=== PATIENT | male | born 1930 | race Caucasian/White ===

== ENCOUNTER 2016-10-16 16:14 | Observation (INO) ==
[2016-10-16] MEDS ORDERED: 0.9 % Sodium Chloride 1,000 ML ONE ×2 (16:44→18:55)
[2016-10-16] MEDS: 0.9 % Sodium Chloride 1,000 ML IVC ONE (16:45)
[2016-10-16 17:28] LABS: Basophils % 0.3 %; Eosinophils % 0.3 %; Hematocrit 23.2 % (37.5-50.1); Hemoglobin 7.2 g/dL (12.9-16.9); Immature Granulocytes % 0.5 % (0-4); Lymphocytes # 1.8 K/mcL (0.6-4.6); Lymphocytes % 23.4 %; Mean Corpuscular Hemoglobin 31.9 pg (28.0-33.3); Mean Corpuscular Volume 102.7 fL (83.0-100.0); Monocytes # 0.7 K/mcL (0.0-1.3); Monocytes % 8.8 %; Neutrophils # 5.2 K/mcL (1.6-8.9); Platelet Count 181 K/mcL (140-400); Red Blood Count 2.26 M/mcL (4.19-5.50); Red Cell Distribution Width 14.8 % (11.5-14.5); Segmented Neutrophils % 66.7 %
[2016-10-16] MEDS ORDERED: *HR* OxyCODONE/APAP 5/325 TABLET PO ONE (17:30)
[2016-10-16] MEDS ORDERED: 0.9 % Sodium Chloride 1,000 ML IVC ONE (17:37)
[2016-10-16 17:39] LABS: Calcium 8.4 mg/dL (8.6-10.8); Potassium 5.7 mEq/L (3.5-4.5)
[2016-10-16] MEDS ORDERED: Calcium Gluconate 1,000 MG in D5% in Water 100 ML IVPB ONE (18:14)
--- NOTE | 2016-10-16 18:51 | Emergency Department Note ---
START Narrative - START START: I examined this patient and my medical decision-making was reviewed with the PANTOGRAPHER/PA/Advanced Practice Nurse/Resident Physician. I agree with the documented findings, disposition and treatment plan as described except to the extent set forth below. 85-year-old male presents with concerns of weakness and shortness of breath with exertion. Patient has a history of metastatic cancer and has been having hematuria for the past 3 weeks. Patient reports gross hematuria over the past few days which has been worsening. Patient has felt near syncopal but has not syncopized. Since hemoglobin is significantly decreased from his previous labs. It is 7.2 but he is definitively symptomatic. She was hypotensive with a blood pressure of systolic 60s upon arrival. This improved significantly with 2 L IV fluids. Pt feels comfortable with plan for admission to the hospital. Transfusion order placed and patient will be admitted.
--- NOTE | 2016-10-16 20:11 | Emergency Department Note ---
Disposition Clinical Impression: ARIN (acute kidney injury) Anemia Qualifiers: Anemia type: unspecified type Qualified Code(s): D64.9 - Anemia, unspecified Bladder cancer Qualifiers: Bladder location: unspecified site Qualified Code(s): C67.9 - Malignant neoplasm of bladder, unspecified Disposition: Admitted As Inpatient Condition: Fair Time of Disposition: 19:00 General Adult HPI - General Chief complaint: ED Urogenital-Male Stated complaint: Urinating blood Time Seen by Provider: 10/16/16 16:40 Source: patient Limitations: no limitations Nursing Notes Reviewed: Yes Vital Signs Reviewed: Yes - History of Present Illness HPI Narrative: Patient is an 85 -year-old male who presents to [facility] ED with a chief complaint of worsening weakness over the last 3 days. Past medical history significant for stage IV bladder cancer. Patient has hematuria which is normal for him. States he knows this is a terminal diagnosis and had only expected to live to July. States his has been taking care of him at home but now he is getting too weak to where he cannot stay at home. Patient is extremely pale appearing. Denies any nausea, vomiting, fever or chills. No chest pain or shortness of breath. No abdominal pain. Patient is complaining of pain in his sacral region but he has mainly just been laying down or sitting. Onset (ago): day(s) Pain Scale: 2 Quality: aching Consistency: constant Improves with: nothing Worsens with: nothing Associated symptoms: Reports: weakness. Denies: chest pain, cough, fever/chills , nausea/vomiting, shortness of breath Treatments Prior to Arrival: none - Related Data Allergies Allergy/AdvReac Type Severity Reaction Status Date / Time shellfish derived Allergy Hives Verified 05/17/15 20:21 All systems ED: reviewed and negative except as stated. Past Medical History - Past Medical History Attestation: Yes The following information was validated with the patient. Source: patient Medical history: Reports: cancer, myocardial infarction Surgical history: Reports: coronary bypass (CABG), pacemaker/AICD Psychiatric history: Reports: no psych history - Social History Smoking Status: Never smoker Smokeless Tobacco Status: No Alcohol use: Reports: occasionally Drug use: Reports: none Physical Exam - General Limitations: no limitations General appearance: alert, in no apparent distress - Head Head exam: atraumatic, normocephalic, normal inspection - Eye Eye exam: Present: normal appearance, PERRL, EOMI - ENT ENT exam: normal exam, normal oropharynx, mucous membranes moist - Neck Neck exam: Present: normal inspection, full ROM, trachea midline - Chest Chest inspection: Present: normal inspection, symmetric chest wall rise - Respiratory Respiratory exam: Present: normal lung sounds bilaterally - Cardiovascular Cardiovascular exam: Present: regular rate, normal rhythm, normal heart sounds - Abdominal Exam Abdominal exam: Present: soft, Non-Tender. Absent: tenderness, distention, guarding, rebound, rigidity - Extremities Exam Extremities exam: Present: normal inspection, full ROM. Absent: tenderness, pedal edema - Back Exam Back exam: Present: normal inspection, full ROM. Absent: tenderness - Neurological Exam Neurological exam: Present: alert, oriented X3 - Psychiatric Psychiatric exam: Present: normal affect, normal mood - Skin Skin exam: Present: warm, dry, intact, pallor Course Course Narrative: Patient seen and examined. Weakness worsening over the last 3 days. Extreme pallor of his skin and conjunctiva. Suspect anemia. Basic lab work ordered. Patient does have signs of beginnings of a stage I sacral ulcer. Percocet ordered for pain. He is hypotensive with blood pressure 60s over 40s upon arrival. 1 L of fluids ordered. - Reevaluation(s) Reevaluation #1: Patient's blood pressure steadily improving. Second liter of fluids ordered. Hemoglobin shows 7.1. One unit of packed RBCs ordered. Also shows acute on chronic kidney disease. We will admit for symptomatic anemia. I spoke with hospitalist Dr. Polanco was accepted patient for admission. Time: 19:00 Vital Signs Temperature 0 F L 10/16/16 16:16 Pulse Rate 90 10/16/16 16:16 Respiratory Rate 18 10/16/16 16:16 Blood Pressure 66/43 10/16/16 16:16 O2 Sat by Pulse Oximetry 100 10/16/16 16:16 Temperature 98.2 F 10/16/16 19:24 Pulse Rate 88 10/16/16 19:24 Respiratory Rate 18 10/16/16 19:34 Blood Pressure 110/49 10/16/16 19:34 O2 Sat by Pulse Oximetry 98 10/16/16 19:24 Oxygen Delivery Oxygen Delivery Room Air Medical Decision Making - Medical Records Medical records reviewed: Yes I reviewed the patient's medical records. - Lab Data Lab results reviewed: Yes I reviewed the patient's lab results. Result diagrams: 10/16/16 17:21 10/16/16 17:21 Lab Results 10/16/16 10/16/16 10/16/16 Range/Units 17:21 17:21 17:27 WBC 7.8 (4.3-11.1) K/mcL RBC 2.26 L (4.19-5.50) M/mcL Hgb 7.2 L (12.9-16.9) g/dL Hct 23.2 L (37.5-50.1) % MCV 102.7 H (83.0-100.0) fL MCH 31.9 (28.0-33.3) pg MCHC 31.0 L (31.6-35.5) g/dL RDW 14.8 H (11.5-14.5) % Plt Count 181 (140-400) K/mcL MPV 8.0 L (9.4-12.4) fL Immature Gran % 0.5 (0-4) % Seg Neutrophils % 66.7 % Lymphocytes % 23.4 % Monocytes % 8.8 % Eosinophils % 0.3 % Basophils % 0.3 % Neutrophils # 5.2 (1.6-8.9) K/mcL Lymphocytes # 1.8 (0.6-4.6) K/mcL Monocytes # 0.7 (0.0-1.3) K/mcL Eosinophils # 0.0 (0.0-0.6) K/mcL Basophils # 0.0 (0.0-0.2) K/mcL Sodium 136 (136-145) mEq/L Potassium 5.7 H (3.5-4.5) mEq/L Chloride 113 H (98-109) mEq/L Carbon Dioxide 13 L (19-29) mEq/L BUN 49 H (8-26) mg/dL Creatinine 2.31 H (0.72-1.25) mg/dL Est GFR ( Amer) 33 L (> 60) Est GFR (Non-Af Amer) 27 L (> 60) BUN/Creatinine Ratio 21 (6-26) Glucose 109 H (70-99) mg/dL Calculated Osmolality 296 (280-300) Calcium 8.4 L (8.6-10.8) mg/dL Blood Type B POSITIVE Antibody Screen NEGATIVE Crossmatch See Detail - EKG Data EKG #1 EKG attestation: Yes I reviewed and interpreted this EKG. EKG results narrative: EKG done at 1820 shows electronic ventricular paced rhythm with a rate of [address] elevation or depression. This is changed from prior EKG done 11/28/2006 in which that was not a paced rhythm at the time.
[2016-10-16] MEDS ORDERED: Ondansetron 4 MG/2 ML VIAL IVP PRN (20:43)
[2016-10-16] MEDS ORDERED: Acetaminophen 325 MG TABLET PO PRN (20:43)
[2016-10-16] MEDS ORDERED: Naloxone 0.4 MG/ML INJ IVP PRN (20:43)
[2016-10-16] MEDS ORDERED: *HR* HYDROmorphone (PF) 1 MG/ML SYRINGE IVP PRN (20:43)
[2016-10-16] MEDS ORDERED: *HR* OxyCODONE Immed Rel 5 MG TABLET PO PRN (20:43)
[2016-10-16] MEDS ORDERED: Benzonatate 100 MG CAPSULE PO PRN (20:43)
[2016-10-16] MEDS ORDERED: Ipratropium/Albuterol Neb 3 ML IH PRN (20:43)
[2016-10-16] MEDS ORDERED: Lactulose Oral Soln 20 GM/30 ML UDC PO STA (20:43)
--- NOTE | 2016-10-16 21:00 | Internal Med History&Physical ---
Date of Encounter: 10/16/16 Time of Encounter: 20:00 Assessment and Plan (1) Gross hematuria Current visit: Yes Status: Acute . (2) Iron deficiency anemia due to chronic blood loss Current visit: Yes Status: Chronic . (3) Acute blood loss anemia Current visit: Yes Status: Acute . (4) Acute kidney injury superimposed on chronic kidney disease Current visit: Yes Status: Acute . (5) Bladder cancer Current visit: Yes Status: Chronic . Qualifiers: Bladder location: unspecified site Qualified Code(s): C67.9 - Malignant neoplasm of bladder, unspecified (6) Cancer associated pain Current visit: Yes Status: Chronic . Internal Medicine - H&P: HPI Chief complaint: "Peeing blood" Admitted From: Emergency Dept Plans for Post Hospital Care: Home History of present illness: Mr. Gibson is a 85 year old male acknowledged history of advanced stage IV bladder carcinoma unspecified,CAD/CABGx5/AMIs, ischCMP/?LVEF<30%AICDpacemaker, retention, dyslipidemia, ?PAF s/p ablation (?not on chr A/C due to bleeding risk ), nonsmoker. Patient is a very poor, rambling and circumstantial historian of circumstances and events and presents with no meaningful medical records to validate his concerns or health history. However, he presents with concerns of progressive weakness and dyspnea with increased work of breathing with any activity and episodes of presyncope over the last's of 3-5 days.. Patient presents with gross hematuria that has been evident for the last 3-4 weeks. He acknowledges episodes of intermittent hematuria for years but the current presentation is more significant. He also acknowledges pain in his groin and sacral region probably add a 2-5/10 severity. Pain is rated as a constant aching. Nothing seems to improve or acutely worsen that when it is present. He reports that he was first diagnosed with his bladder and prostate malignancy 5 years prior and had undergone radiation therapy and chemotherapy and limited surgical interventions which he cannot specify. However he reports that his collective experience has been without resolution of his cancer. At this point he and his have decided to focus mostly on comfort and palliation and not to pursue any aggressive interventions or interventions without hope of clinical improvement. His appetite is been good until the last month or so. Weight also has been stable. Energy level has been acceptable until current events brought him to the emergency room for assessment. Allergies episodes of postural dizziness and near-syncope. Denies chest pain loss of consciousness. No weakness loss of vision slurring of speech nausea vomiting fever chills abdominal pain. Findings in ED note: Vital signs temperature 98.2 pulse 90 respirations 18 and BP 66-110/43-49 O2 saturation 100% room air. WBC 7.8 hemoglobin 7.2 hematocrit 23.2 MCV 102.7 and MCH 31.9 MCHC 31.0. RDW 14.8 platelets 181,000. MPV 8. Differential normal. (Following transfusion 1 unit packed red blood cells , WBC 6.9 hemoglobin 8.4 hematocrit 26.6 RDW 16.4. MPV 8.4. Platelets 192,000. White blood cell differential normal. ) Trending of hemoglobin finds sudden drop occurring from baseline of 12.4 ( December 2015) to 7.2 at presentation to the ER. PT 12.1 INR 1.2 APTT 24.8 d-dimer 1576. Venous blood gas pH 7.38 PCO2 26 PO2 123 bicarbonate 15.4. Comprehensive metabolic panel notes potassium 5.4 chloride 114. Carbon dioxide 15. BUN 47 creatinine 2.31. GFR 27. Glucose 108. Osmolality 295. Hepatic function normal. Trending creatinine finds baseline of 1.10 March 2015. Gradual decline in creatinine 1.38 to 1.51 by February 2016. Declined an estimated GFR from 57 in December 2014 to current 27. Urinalysis signs: Red cloudy consistency. Specific gravity 1.016. Large protein. Trace ketones. Large blood. Positive nitrite. Small leukocyte esterase. EKG demonstrated electronic ventricular paced rhythm 81 bpm no acute ischemic changes present. CT of the abdomen and pelvis without contrast bilateral moderate hydronephrosis and hydroureter. Likely obstruction by heterogeneous soft tissue attenuation within the dependent urinary bladder lumen. Density in the urinary bladder lumen is suggestive of a mass with hemorrhagic products. He will and bilateral iliac chain adenopathy concerning for metastases. Incidental cholelithiasis. Mildly increased attenuation of central mesentery associated lymph nodes. Possibly idiopathic. Infectious inflammatory or neoplastic. CT of chest without contrast demonstrates several bilateral pulmonary nodules. 2 calcified. Largest noncalcified nodules right upper lobe. One is likely inflammatory. Assessment recommended. These were predominant interstitial fibrosis noted. Preliminary presentation suggests treatment refractory, stage IV metastatic bladder carcinoma presenting with gross hematuria and symptomatic acute on chronic blood loss anemia. Modest metabolic derangements are present including metabolic acidosis in the setting of stage IV acute On chronic renal failure. Urine sediment is suggestive of infection. Cultures are pending. Patient presents that increased acute clinical decline in mobility given his presenting clinical findings, advanced age and comorbidities. Workup and treatment will proceed comprehensively.The patient was visited and interviewed and examined. Cumulative laboratory and radiographic data base will be considered and discussed. Pertinent ancillary medical records including ECW and PCI documentation when available was reviewed and considered. Given the patient's presenting concerns, past medical history, clinical findings and symptoms, he is admitted at this time will undergo further evaluation and disposition. Orders were written as per Computerized physician back order clerk system.......................................................................... .................... Consultative opinion will be sought as clinical circumstances justify. Palliative care consultation has been requested. Pain management needs will be addressed. Laboratory /radiographic data base will be updated as appropriate. Studies include: Cultures blood and urine, pt/inr, aptt, LDH, cpk, cardiac injury panel , BNP, UA, metabolic and hematologic panel, magnesium, phosphorus, ionized calcium, thyroid panel ,lipid profile, A1c, C-peptide, CRP, sedimentation rate, blood gas, lactic acid, type/screen, serologies, etc. Precautions: Aspiration, fall, delirium protocol/surveillance initiated. Transfusion: 2 units packed red blood cells when available. Goal hemoglobin greater than 8.5. Orthostatic vital signs. Bladder scan/postvoid residual measurement. Strict input and output and daily weight measurements. Telemetry with continuous hemodynamic monitoring and pulse oximetry initiated. Empiric antibiotic coverage: Intravenous Rocephin pending culture data. Special studies: CT chest/abd/pelvis, chest x-ray, telemetry, EKG, 2d echo. Pulmonary toilet: Incentive spirometry, aerosol bronchodilator, mucolytic, antitussive, supplemental oxygen. Corticosteroid therapy. CPAP/BiPAP supplemental oxygen delivery. Aerosol Mucomyst therapy. Fluid and electrolyte repletion efforts will proceed. Careful attention to fluid balance and renal recovery will be emphasized. Avoidance of nephrotoxic exposure and adverse drug drug interaction in the setting of impaired renal function will be monitored closely. Acute coronary syndrome protocol/surveillance initiated. DVT and PUD prophylaxis initiated: PPI therapy, intermittent pneumatic cuffs. Subcutaneous heparin/Lovenox was held due to GROSS hematuria. Early ambulation will be encouraged. Immunization updates recommended. Influenza and pneumococcal vaccinations as part of ongoing preventative healthcare recommendations strongly recommended. Smoking cessation counseling briefly addressed. Patient is a nonsmoker. Advanced care directive discussion addressed. Patient does declare healthcare restrictions at this time. Cardiovascular risk appraisal and cardiovascular risk reduction efforts will be emphasized. Physical /occupational therapy consulted to evaluate patient's functional capacity and progressive mobility as his circumstances permit. Nutrition/dietary education-counseling and supplemental dietary options/ stimulants to be considered as circumstances justify. Outpatient medication schedules will be reviewed, confirmed and facilitated as appropriate. Reconciliation of home treatments including adjustments, substitutions and reintroduction into the treatment regimen will address necessary maintenance therapies for chronic pre-existing medical conditions. Plan of care has been reviewed and discussed in detail with the patient. Questions addressed. Hospital course dictated by clinical findings, treatment response and potential consultative interventions. Patient is a risk for further acute clinical decline due to age, findings, chief complaints and comorbid conditions. Condition is serious. Prognosis is guarded. CODE STATUS is DNR comfort care arrest. Past Med Surg Social Fam HX - Past Medical History Source: patient, old records reviewed Medical history: arthritis, cancer, cardiomyopathy, coronary artery disease, hyperlipidemia, hypertension, malignancy, myocardial infarction, renal disease, other Psychiatric history: no psych history, other - Past Surgical History Surgical History: cancer surgery, coronary bypass (CABG), pacemaker/AICD, other , AICD, pacemaker - Social History Smoking Status: Never smoker Smokeless Tobacco Status: No Alcohol use: occasionally Drug use: none Occupational status: retired Current living situation: Home, With Family Activity Level: Independent ambulation, Mostly sedentary Recent Out of Country Travel Within the Last 8 Weeks: No Exposure or Possible Exposure to Illness During Travel: No Internal Medicine - H&P: Meds Aspirin [Lo-Dose Aspirin EC] 81 mg PO DAILY 10/17/16 [History] Atorvastatin [Lipitor] 40 mg PO HS 10/17/16 [History] Diltiazem HCl [Diltiazem 24Hr Cd] 120 mg PO DAILY 10/17/16 [History] Enalapril Maleate [Vasotec] 20 mg PO BID 10/17/16 [History] Metoprolol Succinate 50 mg PO DAILY 10/17/16 [History] Multivits,Ca,Min/Iron/FA/Lycop [Centrum Men's Tablet] 1 each PO DAILY 10/17/16 [ History] Allergies shellfish derived Allergy (Verified 05/17/15 20:21) Hives All Systems PM: A 10-system review of systems was performed and is negative for pertinent findings except as documented above in the HPI. Allergies Allergy/AdvReac Type Severity Reaction Status Date / Time shellfish derived Allergy Hives Verified 05/17/15 20:21 Patient Problems (Last Updated 10/16/16 @ 21:02 by Obey Hennessy MD) Anemia (Acute Medical) D64.9 ARIN (acute kidney injury) (Acute Medical) N17.9 Bladder cancer (Chronic Medical) C67.9 Acute blood loss anemia (Acute Medical) D62 Acute kidney injury superimposed on chronic kidney disease (Acute Medical) N17.9 , N18.9 Gross hematuria (Acute Medical) R31.0 Iron deficiency anemia due to chronic blood loss (Chronic Medical) D50.0 Acute retention of urine (Inactive Medical) - Constitutional Constitutional: as per HPI, fatigue, malaise, other, no chills, no fever(s), no night sweats - EENT Eyes: as per HPI, no change in vision, no discharge, no pain, no photophobia Ears: as per HPI, no ear discharge, no ear pain, no tinnitus Nose, mouth and throat: as per HPI, no dysphagia, no nasal discharge, no neck pain, no sore throat - Cardiovascular Cardiovascular ROS IM: as per HPI, no chest pain, no diaphoresis, no dyspnea, no lightheadedness, no palpitations, no syncope - Respiratory Respiratory: as per HPI, no cough, no dyspnea, no wheezing, no excessive phlegm production - Gastrointestinal Gastrointestinal: as per HPI, no abdominal pain, no diarrhea, no hematemesis, no hematochezia, no melena, no nausea, no vomiting - Genitourinary Genitourinary ROS male: as per HPI, difficulty urinating, flank pain, genital pain, hematuria, urinary urgency, other - Musculoskeletal Musculoskeletal ROS IM: as per HPI, no numbness, no tingling - Integumentary Integumentary IM: as per HPI, no rash, no unusual bruising - Neurological Neurological ROS: as per HPI, no confusion, no convulsions, no focal weakness, no numbness, no tingling, no tremor(s) - Psychiatric Psychiatric: as per HPI - Endocrine Endocrine IM: as per HPI - Hematologic/Lymphatic Hematologic/Lymphatic: as per HPI, easy bleeding, other, no easy bruising - Allergic/Immunologic Allergic/Immunologic: as per HPI - Constitutional Vitals: Temp Pulse Resp BP Pulse Ox 98.2 F 89 18 118/66 99 10/16/16 19:24 10/16/16 20:00 10/16/16 20:00 10/16/16 20:00 10/16/16 20:00 Vital Signs Temp Pulse Resp BP Pulse Ox 10/16/16 20:00 89 18 118/66 99 10/16/16 19:34 18 110/49 10/16/16 19:30 88 18 110/49 98 10/16/16 19:24 98.2 F 88 18 118/54 98 10/16/16 19:09 97.9 F 86 18 99/45 97 10/16/16 17:45 87 18 100/63 99 10/16/16 17:15 88 18 88/49 99 10/16/16 16:53 97.7 F 88 18 89/53 99 10/16/16 16:16 0 F L 90 18 66/43 100 Intake and Output 10/16/16 10/16/16 10/16/16 07:59 15:59 23:59 Intake Total 2109 Balance 2109 Intake: IV Fluids 2109 0.9 % Sodium Chloride 1, 2000 / 2000 000 ML @ 3750 mls/hr IVC .Q16M ONE Rx#:[id number] Calcium Gluconate 1,000 110 / 110 MG In Dextrose 5% 100 ML @ 220 mls/hr IVPB ONCE ONE Rx#:[id number] Blood Product 0 / 0 Rbcs Leuko Poor As-3 0 / 0 Unit [id number] Other: Weight 68.039 kg Patient Weight 10/16/16 23:59 Weight 68.039 kg General appearance: Present: mild distress, A&O X 3, answers questions appropriately. Absent: cachectic - Head Head exam: Present: atraumatic, normal inspection, normocephalic - Eye Eye exam: Present: EOMI, PERRL, conjuntiva pink, sclera anicteric Pupils: Present: normal accommodation, PERRL - ENT ENT exam: Present: mucous membranes moist, normal oropharynx - Neck Neck exam general surgery: Present: supple, trachea midline. Absent: lymphadenopathy - Respiratory Respiratory exam: Present: decreased breath sounds, CTAB. Absent: accessory muscle use, rales, rhonchi, wheezes - Cardiovascular Cardiovascular exam: Present: distant heart sounds, RRR, +S1, +S2. Absent: diastolic murmur, gallop, rubs, systolic murmur - GI/Abdominal GI/Abdominal exam: Present: normal bowel sounds, soft, no peritoneal signs. Absent: distended, tenderness - Extremities Exam Extremities exam: Present: warm, radial pulses palpable and symetrical. Absent : calf tenderness, cyanotic, pedal edema - Neurological Exam Neurological exam: Present: alert, CN II-XII intact, oriented X3, no focal deficits. Absent: pronater drift, facial droop, speech deficit - Psychiatric Psychiatric exam: Present: normal affect, normal mood - Skin Skin exam: Present: dry, intact Internal Med - H&P Results - Labs CBC & Chem 7: 10/16/16 23:15 10/16/16 23:15 Labs: Vital Signs Temp Pulse Resp BP Pulse Ox 10/16/16 20:00 89 18 118/66 99 10/16/16 19:34 18 110/49 10/16/16 19:30 88 18 110/49 98 10/16/16 19:24 98.2 F 88 18 118/54 98 10/16/16 19:09 97.9 F 86 18 99/45 97 10/16/16 17:45 87 18 100/63 99 10/16/16 17:15 88 18 88/49 99 10/16/16 16:53 97.7 F 88 18 89/53 99 10/16/16 16:16 0 F L 90 18 66/43 100 Intake and Output 10/16/16 10/16/16 10/16/16 07:59 15:59 23:59 Intake Total 2109 Balance 2109 Intake: IV Fluids 2109 0.9 % Sodium Chloride 1, 2000 / 2000 000 ML @ 3750 mls/hr IVC .Q16M ONE Rx#:[id number] Calcium Gluconate 1,000 110 / 110 MG In Dextrose 5% 100 ML @ 220 mls/hr IVPB ONCE ONE Rx#:[id number] Blood Product 0 / 0 Rbcs Leuko Poor As-3 0 / 0 Unit [id number] Other: Weight 68.039 kg Patient Weight 10/16/16 23:59 Weight 68.039 kg Short CBC 10/16/16 Range/Units 17:21 WBC 7.8 (4.3-11.1) K/mcL Hgb 7.2 L (12.9-16.9) g/dL Hct 23.2 L (37.5-50.1) % Plt Count 181 (140-400) K/mcL Neutrophils # 5.2 (1.6-8.9) K/mcL BMP 10/16/16 Range/Units 17:21 Sodium 136 (136-145) mEq/L Potassium 5.7 H (3.5-4.5) mEq/L Chloride 113 H (98-109) mEq/L Carbon Dioxide 13 L (19-29) mEq/L BUN 49 H (8-26) mg/dL Creatinine 2.31 H (0.72-1.25) mg/dL Glucose 109 H (70-99) mg/dL Calcium 8.4 L (8.6-10.8) mg/dL Abnormal lab results RBC 2.26 M/mcL (4.19-5.50) L 10/16/16 17:21 Hgb 7.2 g/dL (12.9-16.9) L 10/16/16 17:21 Hct 23.2 % (37.5-50.1) L 10/16/16 17:21 MCV 102.7 fL (83.0-100.0) H 10/16/16 17:21 MCHC 31.0 g/dL (31.6-35.5) L 10/16/16 17:21 RDW 14.8 % (11.5-14.5) H 10/16/16 17:21 MPV 8.0 fL (9.4-12.4) L 10/16/16 17:21 Potassium 5.7 mEq/L (3.5-4.5) H 10/16/16 17:21 Chloride 113 mEq/L (98-109) H 10/16/16 17:21 Carbon Dioxide 13 mEq/L (19-29) L 10/16/16 17:21 BUN 49 mg/dL (8-26) H 10/16/16 17:21 Creatinine 2.31 mg/dL (0.72-1.25) H 10/16/16 17:21 Est GFR ( Amer) 33 (> 60) L 10/16/16 17:21 Est GFR (Non-Af Amer) 27 (> 60) L 10/16/16 17:21 Glucose 109 mg/dL (70-99) H 10/16/16 17:21 Calcium 8.4 mg/dL (8.6-10.8) L 10/16/16 17:21 - Impressions Laboratory Results WBC 7.8 K/mcL (4.3-11.1) 10/16/16 17:21 RBC 2.26 M/mcL (4.19-5.50) L 10/16/16 17:21 Hgb 7.2 g/dL (12.9-16.9) L 10/16/16 17:21 Hct 23.2 % (37.5-50.1) L 10/16/16 17:21 MCV 102.7 fL (83.0-100.0) H 10/16/16 17:21 MCH 31.9 pg (28.0-33.3) 10/16/16 17:21 MCHC 31.0 g/dL (31.6-35.5) L 10/16/16 17:21 RDW 14.8 % (11.5-14.5) H 10/16/16 17:21 Plt Count 181 K/mcL (140-400) 10/16/16 17:21 MPV 8.0 fL (9.4-12.4) L 10/16/16 17:21 Immature Gran % 0.5 % (0-4) 10/16/16 17:21 Seg Neutrophils % 66.7 % 10/16/16 17:21 Lymphocytes % 23.4 % 10/16/16 17:21 Monocytes % 8.8 % 10/16/16 17:21 Eosinophils % 0.3 % 10/16/16 17:21 Basophils % 0.3 % 10/16/16 17:21 Neutrophils # 5.2 K/mcL (1.6-8.9) 10/16/16 17:21 Lymphocytes # 1.8 K/mcL (0.6-4.6) 10/16/16 17:21 Monocytes # 0.7 K/mcL (0.0-1.3) 10/16/16 17:21 Eosinophils # 0.0 K/mcL (0.0-0.6) 10/16/16 17:21 Basophils # 0.0 K/mcL (0.0-0.2) 10/16/16 17:21 Sodium 136 mEq/L (136-145) 10/16/16 17:21 Potassium 5.7 mEq/L (3.5-4.5) H 10/16/16 17:21 Chloride 113 mEq/L (98-109) H 10/16/16 17:21 Carbon Dioxide 13 mEq/L (19-29) L 10/16/16 17:21 BUN 49 mg/dL (8-26) H 10/16/16 17:21 Creatinine 2.31 mg/dL (0.72-1.25) H 10/16/16 17:21 Est GFR ( Amer) 33 (> 60) L 10/16/16 17:21 Est GFR (Non-Af Amer) 27 (> 60) L 10/16/16 17:21 BUN/Creatinine Ratio 21 (6-26) 10/16/16 17:21 Glucose 109 mg/dL (70-99) H 10/16/16 17:21 Calculated Osmolality 296 (280-300) 10/16/16 17:21 Calcium 8.4 mg/dL (8.6-10.8) L 10/16/16 17:21 Blood Type B POSITIVE 10/16/16 17:27 Antibody Screen NEGATIVE 10/16/16 17:27 Crossmatch See Detail 10/16/16 17:27 - Attending Attestation Allergies shellfish derived Allergy (Verified 05/17/15 20:21) Hives I & O 10/13/16 10/14/16 10/15/16 10/16/16 23:59 23:59 23:59 23:59 Intake Total 2109 Balance 2109 Weight 68.039 kg Intake: IV Fluids 2109 0.9 % Sodium Chloride 1, 2000 / 1999 000 ML @ 3750 mls/hr IVC .Q16M ONE Rx#:[id number] Calcium Gluconate 1,000 110 / 110 MG In Dextrose 5% 100 ML @ 220 mls/hr IVPB ONCE ONE Rx#:[id number] Blood Product 0 / 0 Rbcs Leuko Poor As-3 0 / 0 Unit [id number] Medications Acetaminophen (Tylenol) 650 mg PO Q6HR PRN PRN Reason: Mild Pain (1-3) Stop: 04/17/17 20:44 Albuterol/Ipratropium (Duoneb) 3 ml IH [id number] PRN; Protocol PRN Reason: Shortness Of Breath/Wheezing Stop: 04/17/17 20:44 Benzonatate (Tessalon) 200 mg PO TID PRN PRN Reason: Cough Stop: 04/17/17 20:44 Docusate Sodium (Colace) 100 mg PO BID ART Stop: 04/17/17 21:01 Guaifenesin (Mucinex) 600 mg PO BID PRN PRN Reason: Congestion Stop: 04/17/17 20:44 Hydromorphone HCl (Dilaudid) 0.5 mg IVP Q4HR PRN PRN Reason: Severe Pain (7-10) Stop: 04/17/17 20:44 Lactulose (Lactulose) 10 gm PO ONCE STA Stop: 10/16/16 20:44 Naloxone HCl (Narcan) 0.4 mg IVP Q2MIN PRN PRN Reason: Opioid Reversal Stop: 04/17/17 20:44 Omeprazole (Prilosec) 20 mg PO DAILY@0630 ART PRN Reason: Protocol Stop: 04/18/17 06:31 Ondansetron HCl (Zofran) 4 mg IVP Q8HR PRN PRN Reason: Nausea And Vomiting Stop: 04/17/17 20:44 Oxycodone HCl (Roxicodone) 10 mg PO Q6HR PRN PRN Reason: Moderate Pain (4-6) Stop: 04/17/17 20:44 Sodium Polystyrene Sulfonate (Kayexalate) 30 gm PO ONCE STA Stop: 10/16/16 20:44 Discontinued Medications Sodium Chloride (0.9 % Sodium Chloride) Confirm Administered Dose 1,000 mls @ as directed .ROUTE .STK-MED ONE Stop: 10/16/16 16:45 Sodium Chloride (0.9 % Sodium Chloride) 1,000 mls @ 3,750 mls/hr IVC .Q16M ONE Stop: 10/16/16 17:05 Last Infusion: 10/16/16 17:30 Dose: 0 mls/hr Sodium Chloride (0.9 % Sodium Chloride) 1,000 mls @ 3,750 mls/hr IVC .Q16M ONE Stop: 10/16/16 17:52 Last Infusion: 10/16/16 19:00 Dose: 0 mls/hr Calcium Gluconate 1,000 mg/ (Dextrose) 110 mls @ 220 mls/hr IVPB ONCE ONE Stop: 10/16/16 18:43 Last Infusion: 10/16/16 19:22 Dose: 0 mls/hr Sodium Chloride (0.9 % Sodium Chloride) Confirm Administered Dose 1,000 mls @ as directed .ROUTE .STK-MED ONE Stop: 10/16/16 18:56 Oxycodone/Acetaminophen (Percocet 5/325) 1 each PO ONCE ONE Stop: 10/16/16 17:31 Last Admin: 10/16/16 17:54 Dose: 1 each Re-Assess: [facility] Pain Assessment Document 10/16/16 18:39 [id number] (Rec: 10/16/16 18:53 [id number] [place] [id number]) Patient's Stated Pain Level Pain Intensity 2 Orders 10/16/16 16:44 0.9 % Sodium Chloride 1,000 ml .ROUTE As Directed 10/16/16 16:50 0.9 % Sodium Chloride 1,000 ml IVC 3,750 mls/hr 10/16/16 16:51 Vital Signs Assessment [RC] PROTOCOL Chlamydia Trachomatis DNA [MOLMIC] Stat Specimen: Send someone from the department to collect Source of specimen:: 1ST STREAM URINE Collected by nurse?: Yes Neisseria Gonorrhoeae DNA [MOLMIC] Stat Specimen: Send someone from the department to collect Source of specimen:: 1ST STREAM URINE Collected by nurse?: Yes Urinalysis Reflex Cult & Micro [URIN] Stat Comment: Specimen: Pre-Collection Label 10/16/16 17:21 Basic Metabolic Panel Stat Comment: Specimen: Send someone from the department to collect Complete Blood Count [HEME] Stat Comment: Specimen: Send someone from the department to collect 10/16/16 17:27 Red Blood Cells [BBK] Stat BBK Wristband Number: [id number] Comment: Quantity: 1 Specimen: Send someone from the department to collect Indicate Reason for RBC Trans: Hgb <8g/dl with: Indicate condition for HGB <8: Signs/Symtoms of Anemia Has pt been within the last 3 months?: No Has pt been transfused within the last 3 months?: No Type and Screen [BBK] Stat BBK Wristband Number: [id number] Comment: Specimen: Send someone from the department to collect 10/16/16 17:30 OxyCODONE/APAP 5/325 [Percocet 5/325] 1 each PO ONCE ONE 10/16/16 17:37 0.9 % Sodium Chloride 1,000 ml IVC 3,750 mls/hr 10/16/16 18:13 12 lead ECG assessment [RC] NOW ECG 12 lead ECG [ECG] Stat Mode Of Transportation: Portable Reason For Exam: hyperkalemia Order Doctor: Jenny Zamarripa Exam Performed At:: [facility] 10/16/16 18:14 Calcium Gluconate 1,000 mg D5% in Water [Dextrose 5%] 100 ml IVPB ONCE 10/16/16 18:16 Transfusion, red blood cells [RC] .STAT 10/16/16 18:[address] Stat Comment: Reason for Visit: anemia, ARIN, weakness, Stage IV cancer 10/16/16 18:55 0.9 % Sodium Chloride 1,000 ml .ROUTE As Directed 10/16/16 20:43 Apply anti-embolic stockings [RC] .NOW Aspiration precautions [RC] .CONTINUOUS Continuous Bladder Irrigation [RC] once Falls precautions (Chet-Garcia [RC] ONCE Incentive Spirometry [RC] .6 TIMES PER HR WHILE AWAKE Peripheral IV [RC] CONT Placement to Observation Routine Physician Instructions: Reason for Visit: Bloody urine. Weakness. Is VTE Prophylaxis Indicated?: Yes Vital Signs Assessment [RC] Q4H Activated Partial Thrombo Time [COAG] Stat Specimen: Send someone from the department to collect Comment: Creatine Kinase Stat Specimen: Send someone from the department to collect Comment: D-Dimer [COAG] Stat Specimen: Send someone from the department to collect Comment: Hepatic Panel Stat Specimen: Send someone from the department to collect Comment: Ionized Calcium Stat Specimen: Send someone from the department to collect Comment: Lactate Dehydrogenase Stat Specimen: Send someone from the department to collect Comment: Lactic Acid ([facility] Only) Stat Specimen: Send someone from the department to collect Comment: Magnesium Stat Specimen: Send someone from the department to collect Comment: Phosphorous Stat Specimen: Send someone from the department to collect Comment: Prothrombin Time INR [COAG] Stat Specimen: Send someone from the department to collect Comment: Troponin I Stat Specimen: Send someone from the department to collect Comment: Venous Blood Gas Stat Specimen: Send someone from the department to collect Comment: Acetaminophen [Tylenol] 650 mg PO Q6HR PRN Benzonatate [Tessalon] 200 mg PO TID PRN GuaiFENesin ER [Mucinex] 600 mg PO BID PRN HYDROmorphone (PF) [Dilaudid] 0.5 mg IVP Q4HR PRN Ipratropium/Albuterol Neb [Duoneb] 3 ml IH [id number] PRN Lactulose 10 gm PO ONCE STA Naloxone [Narcan] 0.4 mg IVP Q2MIN PRN Ondansetron [Zofran] 4 mg IVP Q8HR PRN OxyCODONE Immed Rel [Roxicodone] 10 mg PO Q6HR PRN Sodium Polystyrene Sulfonate [Kayexalate] 30 gm PO ONCE STA Resuscitation Status: Active [RES] Routine Resuscitation Status: DNR-Comfort Care-Arrest Comment: 10/16/16 20:44 Bed rest [RC] .CONT Physician Instructions: Bed rest w/bedside commode [RC] .PRN Cardiac Monitoring Med/Surg [RC] .CONT Telemetry Reason: ACS/CP Continuous pulse oximetry [RC] CONT Comment: Measure intake and output [RC] QSHIFT Measure weight [RC] DAILY 10/16/16 20:45 Oxygen via nasal cannula Nasal Cannula 2 lpm Comment: Titrate O2 to main O2 sat greater than: 92% RT has an order or consult [RC] NOW Bauman to gravity PROTOCOL Physician Instructions: Comment: Up with Assist Daily Physician Instructions: Comment: 10/16/16 20:48 Consult to Occupational Therapy [CONS] Routine Comment: Evaluate, develop and implement POC Consult to Physical Therapy [CONS] Routine Comment: Evaluate, develop and implement POC 10/16/16 20:51 CT abd pelvis wo no iv no oral [CT] Routine Quantity: 1 Mode Of Transportation: Stretcher Reason For Exam: ARIN. Bladder Ca w/gross hematuria Order Doctor: Obey Hennessy Exam Performed At:: [facility] to Contrast: No 10/16/16 21:00 Docusate [Colace] 100 mg PO BID 10/16/16 Dinner Renal Diet Diet Modifications: 10/17/16 04:00 Basic Metabolic Panel AM 0400 Specimen: Send someone from the department to collect Comment: C-Reactive Protein AM 0400 Specimen: Send someone from the department to collect Comment: Complete Blood Count w/o Diff [HEME] AM 0400 Specimen: Send someone from the department to collect Comment: Erythrocyte Sedimentation Rate [HEME] AM 0400 Specimen: Send someone from the department to collect Comment: Hgb A1C AM 0400 Specimen: Send someone from the department to collect Comment: Iron Profile AM 0400 Specimen: Send someone from the department to collect Comment: Lipid Panel AM 0400 Specimen: Send someone from the department to collect Comment: Thyroid Stimulating Hormone AM 0400 Specimen: Send someone from the department to collect Comment: 10/17/16 06:30 Omeprazole [PriLOSEC] 20 mg PO DAILY@0630 10/17/16 20:45 Up with Assist Daily Physician Instructions: Comment: 10/18/16 20:45 Up with Assist Daily Physician Instructions: Comment: Patient Problems (Last Updated 10/16/16 @ 20:18 by Jenny Zamarripa DO) Anemia (Acute) ARIN (acute kidney injury) (Acute) Bladder cancer (Acute) Vital Signs Temp Pulse Resp BP Pulse Ox 10/16/16 20:00 89 18 118/66 99 10/16/16 19:34 18 110/49 10/16/16 19:30 88 18 110/49 98 10/16/16 19:24 98.2 F 88 18 118/54 98 10/16/16 19:09 97.9 F 86 18 99/45 97 10/16/16 17:45 87 18 100/63 99 10/16/16 17:15 88 18 88/49 99 10/16/16 16:53 97.7 F 88 18 89/53 99 10/16/16 16:16 0 F L 90 18 66/43 100 Laboratory Results 10/16/16 10/16/16 10/16/16 Range/Units 17:21 17:21 17:27 WBC 7.8 (4.3-11.1) K/mcL RBC 2.26 L (4.19-5.50) M/mcL Hgb 7.2 L (12.9-16.9) g/dL Hct 23.2 L (37.5-50.1) % MCV 102.7 H (83.0-100.0) fL MCH 31.9 (28.0-33.3) pg MCHC 31.0 L (31.6-35.5) g/dL RDW 14.8 H (11.5-14.5) % Plt Count 181 (140-400) K/mcL MPV 8.0 L (9.4-12.4) fL Immature Gran % 0.5 (0-4) % Seg Neutrophils % 66.7 % Lymphocytes % 23.4 % Monocytes % 8.8 % Eosinophils % 0.3 % Basophils % 0.3 % Neutrophils # 5.2 (1.6-8.9) K/mcL Lymphocytes # 1.8 (0.6-4.6) K/mcL Monocytes # 0.7 (0.0-1.3) K/mcL Eosinophils # 0.0 (0.0-0.6) K/mcL Basophils # 0.0 (0.0-0.2) K/mcL Sodium 136 (136-145) mEq/L Potassium 5.7 H (3.5-4.5) mEq/L Chloride 113 H (98-109) mEq/L Carbon Dioxide 13 L (19-29) mEq/L BUN 49 H (8-26) mg/dL Creatinine 2.31 H (0.72-1.25) mg/dL Est GFR ( Amer) 33 L (> 60) Est GFR (Non-Af Amer) 27 L (> 60) BUN/Creatinine Ratio 21 (6-26) Glucose 109 H (70-99) mg/dL Calculated Osmolality 296 (280-300) Calcium 8.4 L (8.6-10.8) mg/dL Blood Type B POSITIVE Antibody Screen NEGATIVE Crossmatch See Detail Assessments/Treatments 12 lead ECG assessment Start: 10/16/16 18: 13 Freq: NOW Status: Complete Document 10/16/16 19:33 [id number] (Rec: 10/16/16 19:34 [id number] [place] [id number]) EKG Time EKG Completed 18:20 EKG performed by Yocasta PHILIP EKG shown to and signed by Dr. Moreno ED Discharge Assessment Start: 10/16/16 16: 15 Freq: Status: Complete Document 10/16/16 19:34 [id number] (Rec: 10/16/16 19:35 [id number] [place] [id number]) ED Discharge Assessment ED Discharge Disposition Admitted ED Condition on Discharge Fair Med Rec/Patient Pharmacy Completed? No Admitted to 2A Bed assigned 2A14 Transported by valve technician Transported with IV continuing medication Report given to Nurse Care transferred to (name/credentials) [place] RN Information relayed patient's care treatments medications given condition recent/anticipated changes Clinical Documentation Summary Provided Yes Pain Scale 2 Pain Scale Used Standard (1-10) Blood Pressure 110/49 Heart rate 90 Respiratory Rate 18 Oxygen Delivery Room Air Oxygen Saturation 98 Critical Care Minutes 0 ED Male Urogenital Assessment Start: 10/16/16 16: 15 Freq: Status: Complete Document 10/16/16 16:53 [id number] (Rec: 10/16/16 16:56 [id number] [place] [id number]) Male Urogenital Sepsis Infection Criteria Present none Sepsis SIRS Criteria none Sepsis Screen No Definite Risk Sepsis Action Taken no action required Onset 3-4 weeks Duration Intermittent Context Unknown Improves With Nothing Worsens With Nothing Associated Symptoms Blood In Urine Incontinence Level Of Consciousness Awake Alert Appropriate Follows Commands Patient Orientation Person Place Time Skin Temperature Cool Skin Moisture Dry Skin Turgor Normal Capillary Refill < 3 Seconds Respiratory Depth Normal Respiratory Effort Normal for Patient Spontaneous Non-Labored Respiratory Pattern Regular Lower Abdomen Pain Description Ache Scale Used Numeric (1 - 10) Nausea/Vomiting Presence None Urine Appearance Small Blood Clots Color Dark Red Odor Strong Penile Discharge Amount None ED Comment Pt pale, cool, and dry. Pt states that he has stage 4 bladder cancer with increased blood in urine and incontinence the past 3-4 weeks with increased weakness. ED Pain Assessment Start: 10/16/16 16: 15 Freq: Status: Complete Document 10/16/16 16:53 [id number] (Rec: 10/16/16 16:56 [id number] [place] [id number]) Pain Assessment Pain Present Reports Pain Patient Rounding Start: 10/16/16 16: 15 Freq: Q30M Status: Active Document 10/16/16 16:53 [id number] (Rec: 10/16/16 16:56 [id number]) Patient Rounding Safety Call Light Within Reach Bed Position Low Bed Brake On Side Rails Up X2 Are the Floors Free From Trip Hazards? Yes Is the Room Free From Clutter? Yes Rounding Completed? Yes Patient Rounding Updated patient/family on Plan of Care Checked for Patient Positioning Checked Patient Pain Level Patient Awake Document 10/16/16 17:15 [id number] (Rec: 10/16/16 17:26 [id number] [place] [id number]) Patient Rounding Safety Call Light Within Reach Bed Position Low Bed Brake On Side Rails Up X2 Are the Floors Free From Trip Hazards? Yes Is the Room Free From Clutter? Yes Rounding Completed? Yes Patient Rounding Updated patient/family on Plan of Care Checked for Patient Positioning Checked Patient Pain Level Patient Awake Document 10/16/16 17:45 [id number] (Rec: 10/16/16 17:58 [id number] [place] [id number]) Patient Rounding Safety Call Light Within Reach Bed Position Low Side Rails Up X2 Are the Floors Free From Trip Hazards? Yes Is the Room Free From Clutter? Yes Patient Rounding Updated patient/family on Plan of Care Checked for Patient Positioning Checked Patient Pain Level Patient Awake Patient Rounding Start: 10/16/16 20: 34 Freq: Q1H Status: Active Document 10/16/16 20:25 RLB (Rec: 10/16/16 20:36 RLB [id number]) Hourly Rounding Hourly Rounding Checked for Patient Positioning Patient Personal Items Placed Within Reach Checked Patient Pain Level Hourly Rounding Completed Yes Patient Awake Is family present? Yes Equipment in Use Specialty Bed Safety Call Light Within Reach Bed Position Low Fall Precautions Phone Within Reach Bed Brake On Side Rails Up X2 Are the Floors Free From Trip Hazards? Yes Is the Room Free From Clutter? Yes Turn and Postion Bedrest No Turn Q 2HR No Patient Position Back Positioning Aides Pillows Saline lock insertion/management Start: 10/16/16 16: 59 Freq: Status: Complete Document 10/16/16 16:59 [id number] (Rec: 10/16/16 16:59 [id number] [place] [id number]) IV Insertion/Site Assessment IV Attempt 1 Successful Successful Blood drawn and sent to Lab No Comment per Brian GODWIN Left Forearm IV Established INSTRUMENT LENS GENERATOR No Date of Insertion 10/16/16 Time of Insertion 16:42 Reason for IV Insertion Provide Access for IV Medication(s) Provide Access for Emergency IV Catheter Type Peripheral IV Gauge (gauge) 18 Site Observation Patent Dressing Applied Window Dressing Transparent Dressing Dry/Intact Document 10/16/16 19:10 [id number] (Rec: 10/16/16 19:11 [id number]) IV Insertion/Site Assessment IV Attempt 1 Successful Successful Blood drawn and sent to Lab No Left Antecubital IV Established INSTRUMENT LENS GENERATOR No Date of Insertion 10/16/16 Time of Insertion 19:07 Reason for IV Insertion Provide Access for IV Medication(s) Provide Access for Emergency IV Catheter Type Peripheral IV Gauge (gauge) 18 Site Observation Patent Dressing Applied Window Dressing Transparent Dressing Dry/Intact Patient Tolerance Tolerated Well TAR Intake Start: 10/16/16 19: 08 Freq: Status: Active Document 10/16/16 19:08 [id number] (Rec: 10/16/16 19:09 [id number] [place] [id number]) TAR.IO Rbcs Leuko Poor As-3 Unit [id number] Intake, Blood Product Amount 0 TAR Vital Signs Start: 10/16/16 19: 09 Freq: Status: Active Document 10/16/16 19:09 [id number] (Rec: 10/16/16 19:10 [id number] [place] [id number]) TAR Vital Signs Temperature (97.6 F-99.6 F) 97.9 F Temperature Source Oral Pulse Location Left Radial Pulse Rate 86 Rhythm Regular Strength Normal Method Palpation Respiratory Rate 18 Depth Normal Effort Normal for Patient Spontaneous Non-Labored Respiratory Pattern Regular Pulse Oximetry 97 Blood Pressure Location Left Arm Blood Pressure 99/45 Blood Pressure Mean (mm Hg) 63 Source Automatic Cuff Position HOB Elevated Product Transfusion Rate (mls/hr) 100 Transfusion Completed?* No Document 10/16/16 19:24 [id number] (Rec: 10/16/16 19:26 [id number] [place] [id number]) TAR Vital Signs Temperature (97.6 F-99.6 F) 98.2 F Temperature Source Oral Pulse Location Left Radial Pulse Rate 88 Rhythm Regular Strength Normal Method Palpation Respiratory Rate 18 Depth Normal Effort Normal for Patient Spontaneous Non-Labored Respiratory Pattern Regular Pulse Oximetry 98 Blood Pressure Location Left Arm Blood Pressure 118/54 Blood Pressure Mean (mm Hg) 75 Source Automatic Cuff Position HOB Elevated Product Transfusion Rate (mls/hr) 150 Transfusion, red blood cells Start: 10/16/16 18: 16 Freq: .STAT Status: Complete Document 10/16/16 19:10 [id number] (Rec: 10/16/16 19:11 [id number] [place] [id number]) Triage Start: 10/16/16 16: 15 Freq: Status: Complete Document 10/16/16 16:16 LAKE (Rec: 10/16/16 16:19 [place]KE [id number]) Triage Chief Complaint triage ED Urogenital-Male Patient Stated Complaint urinating blood ZACH 3 Onset (ago) week(s) Description of Symptoms Pt states that he has been urinating blood for about 3 weeks and is now feeling weak. Pt has bladder cancer. unable to get a temp in triage General Appearance alert in no apparent distress Work Related Injury? No Mode of arrival wheelchair Source patient Limitations no limitations Ebola Risk: Travel/Contact With Anyone No From Affected Area/s Temperature (97.6 F-99.6 F) 0 F L Temperature Source Oral Pulse Rate 90 Respiratory Rate 18 Blood Pressure 66/43 O2 Sat by Pulse Oximetry 100 Oxygen Delivery Room Air Height 1.78 m Weight 68.039 kg Weight Measurement Method Stated by Patient Pain Scale 6 Medical history cancer myocardial infarction Male surgical history coronary bypass (CABG) pacemaker/AICD Additional surgical history PMH 3 bladder surgeries melanoma surgeries Psychiatric history no psych history Smoking Status Never smoker Alcohol Use occasionally Drug Use none Safety Concerns Feels Safe At This Time Do you currently feel hopless, have No thoughts of self harm, or thoughts of harming others History of fall in last 14 days? No Vital Signs Assessment Start: 10/16/16 16: 51 Freq: PROTOCOL Status: Active Document 10/16/16 16:53 [id number] (Rec: 10/16/16 16:56 [id number] [place] [id number]) ED Vital Signs Pain Reported Pain Reported Pain Scale 6 Pain Scale Used Standard (1-10) Blood Pressure 89/53 Blood Pressure Location Right Arm Source Automatic Cuff Position HOB Elevated Pulse Rate 88 Respiratory Rate 18 Depth Normal Effort Normal for Patient Spontaneous Non-Labored Pattern Regular Pulse Oximetry 99 Oxygen Delivery Room Air Temperature (97.6 F-99.6 F) 97.7 F Temperature Source Oral Document 10/16/16 17:15 [id number] (Rec: 10/16/16 17:26 [id number] [place] [id number]) ED Vital Signs Pain Reported Pain Reported Pain Scale 6 Pain Scale Used Standard (1-10) Blood Pressure 88/49 Blood Pressure Location Left Arm Source Automatic Cuff Position HOB Elevated Pulse Rate 88 Respiratory Rate 18 Depth Normal Effort Normal for Patient Spontaneous Non-Labored Pattern Regular Pulse Oximetry 99 Oxygen Delivery Room Air Document 10/16/16 17:45 [id number] (Rec: 10/16/16 17:58 [id number] [place] [id number]) ED Vital Signs Pain Reported Pain Reported Pain Scale 6 Pain Scale Used Standard (1-10) Blood Pressure 100/63 Blood Pressure Location Left Arm Source Automatic Cuff Position HOB Elevated Pulse Rate 87 Respiratory Rate 18 Depth Normal Effort Normal for Patient Spontaneous Non-Labored Pattern Regular Pulse Oximetry 99 Oxygen Delivery Room Air Document 10/16/16 19:30 [id number] (Rec: 10/16/16 20:16 [id number] [place] [id number]) ED Vital Signs Pain Reported Pain Reported Pain Scale 2 Pain Scale Used Standard (1-10) Blood Pressure 110/49 Blood Pressure Location Left Arm Source Automatic Cuff Position HOB Elevated Pulse Rate 88 Respiratory Rate 18 Depth Normal Effort Normal for Patient Spontaneous Non-Labored Pattern Regular Pulse Oximetry 98 Oxygen Delivery Room Air Document 10/16/16 20:00 [id number] (Rec: 10/16/16 20:17 [id number] [place] [id number]) ED Vital Signs Pain Reported Pain Reported Pain Scale 2 Pain Scale Used Standard (1-10) Blood Pressure 118/66 Blood Pressure Location Left Arm Source Automatic Cuff Position HOB Elevated Pulse Rate 89 Respiratory Rate 18 Depth Normal Effort Normal for Patient Spontaneous Non-Labored Pattern Regular Pulse Oximetry 99 Oxygen Delivery Room Air Discharge Information ED Provider: Evens Moreno P Status: Departed Time Seen by Provider: 10/16/16 16:40 Condition: Fair Triaged At: 10/16/16 16:16 Emergency Discharge Date/Time: 10/16/16 20:05 Emergency Discharge Disposition: Admitted As Inpatient Clinical Impression Anemia ARIN (acute kidney injury) Bladder cancer Emergency Discharge Comment: Admit Intervention Last Done ED Male Urogenital Assessment 10/16/16 16:53 Query Result Sepsis Infection Criteria Present none Sepsis SIRS Criteria none Sepsis Screen No Definite Risk Sepsis Action Taken no action required Male Urogenital Onset 3-4 weeks Male Urogenital Duration Intermittent Male Urogenital Context Unknown Male Urogenital Improves With Nothing Male Urogenital Worsens With Nothing Male Urogenital Associated Symptoms Blood In Urine Incontinence Level Of Consciousness Awake Alert Appropriate Follows Commands Patient Orientation Person Place Time Skin Temperature Cool Skin Moisture Dry Skin Turgor Normal Capillary Refill < 3 Seconds Respiratory Depth Normal Respiratory Effort Normal for Patient Spontaneous Non-Labored Respiratory Pattern Regular Lower Abdomen -Pain Description Ache -Pain Scale Used Numeric (1 - 10) Nausea/Vomiting Presence None Urine Appearance Small Blood Clots Urine Color Dark Red Urine Odor Strong Penile Discharge Amount None ED Comment Pt pale, cool, and dry. Pt states that he has stage 4 bladder cancer with increased blood in urine and incontinence the past 3-4 weeks with increased weakness. ED Discharge Assessment 10/16/16 19:34 Query Result ED Discharge Disposition Admitted ED Condition on Discharge Fair Med Rec/Patient Phamracy completed? No ED Admit to 2A Bed assigned 2A14 Transported by valve technician Transported with IV continuing medication Report given to Nurse Care transferred to [place] RN Information relayed patient's care treatments medications given condition recent/anticipated change Clinical Documentation Summary Provided Yes Severity scale (1-10) 2 Pain Scale Used Standard (1-10) Blood Pressure 110/49 Heart rate 90 Respiratory Rate 18 Oxygen Delivery Room Air Pulse Oximetry Reading 98 Critical Care Minutes 0 Observation Discharge Date/Time: Observation Discharge Disposition: Observation Discharge Comment: Instructions: Stand-Alone Forms: ED Satisfaction Letter Prescriptions: Visit Report - Forms: - Referrals: Chris Shetty MD (Primary Care Provider)
[2016-10-16] MEDS ORDERED: *HR* Belladonna Alkaloids/Opium 30 MG RECTAL SUPPOSITORY RC PRN (22:12)
[2016-10-16 23:28] LABS: VBG HCO3 15.4 mEq/L (21-27); VBG PH 7.38 pH Units (7.32-7.42)
[2016-10-16 23:30] LABS: Hematocrit 26.6 % (37.5-50.1); Hemoglobin 8.4 g/dL (12.9-16.9); Mean Corpuscular HGB Conc 31.6 g/dL (31.6-35.5); Mean Corpuscular Hemoglobin 30.9 pg (28.0-33.3); Mean Corpuscular Volume 97.8 fL (83.0-100.0); Mean Platelet Volume 8.4 fL (9.4-12.4); Platelet Count 192 K/mcL (140-400); Red Blood Count 2.72 M/mcL (4.19-5.50); Red Cell Distribution Width 16.4 % (11.5-14.5)
[2016-10-16 23:32] LABS: INR 1.1; Ionized Calcium 1.27 mmol/L (1.15-1.35); Prothrombin Time 12.1 Seconds (9.4-12.1)
[2016-10-16] MEDS: Sodium Bicarbonate 150 MEQ in D5% in Water 1,000 ML IVC SCH (23:34)
[2016-10-16 23:35] LABS: Activated Partial Thrombo Time 24.8 Seconds (26.0-36.0)
[2016-10-16 23:43] LABS: Albumin 2.6 g/dL (3.5-5.0); Albumin/Globulin Ratio 0.7 (1.1-2.2); Bilirubin,Direct 0.4 mg/dL (0.0-0.5); Bilirubin,Indirect 0.3 mg/dL (0.0-1.2); Bilirubin,Total 0.7 mg/dL (0.2-1.2); Globulin 3.5 g/dL (2.4-3.5); Magnesium 1.7 mg/dL (1.6-2.6); Phosphorous 4.4 mg/dL (2.3-4.7); Total Protein 6.1 g/dL (6.0-8.3)
[2016-10-16 23:44] LABS: Calcium 8.9 mg/dL (8.6-10.8); Chol/HDL Ratio 3.3 (0-4.9); Potassium 5.4 mEq/L (3.5-4.5)
[2016-10-17 00:47] LABS: Thyroid Stimulating Hormone 1.386 mcIU/mL (0.350-4.840)
[2016-10-17 00:55] LABS: Hemoglobin A1C 6.1 %
[2016-10-17] MEDS ORDERED: Acetaminophen 325 MG TABLET PO ONE (02:14)
[2016-10-17] MEDS ORDERED: 0.9 % Sodium Chloride 500 ML ONE (04:33)
[2016-10-17] MEDS: Metoprolol XL (24 HR) Succ 25 MG TAB.ER.24H PO SCH (08:48)
[2016-10-17] MEDS: Diltiazem CD (24hr) 120 MG CAPSULE PO SCH (08:48)
[2016-10-17] MEDS: Aspirin Enteric Coated 81 MG Tablet PO SCH (08:48)
[2016-10-17] MEDS: Multivit/Ca/Min/Fe/FA 1 TAB TABLET PO SCH (08:48)
[2016-10-17] MEDS: 0.9 % Sodium Chloride 1,000 ML IVC ONE (08:55)
--- NOTE | 2016-10-17 10:22 | Palliative - Consult Note ---
<Chris Hickman - Last Filed: 10/17/16 10:18> Date of Encounter: 10/17/16 Time of Encounter: 10:18 - Assessment and Plan (1) Goals of care, counseling/discussion Current Visit: Yes Status: Acute Assessment and plan: Discuss goals of care with the patient. He feels that he has nothing else to gain from his cancer treatments at this time and would like to focus on comfort measures. We discussed the idea of hospice and the patient does seem interested in exploring this but would like to have further discussions with his present. We will return to discuss things further when the patient's is present. Patient also wishes to defer CODE STATUS discussions until that time. (2) Anemia Current Visit: Yes Status: Acute Assessment and plan: Secondary to gross hematuria status post transfusion. Patient symptomatically feels much better after transfusions. Further management per primary team. Qualifiers: Anemia type: other cause Other causes of anemia: acute posthemorrhagic Qualified Code(s): D62 - Acute posthemorrhagic anemia (3) Bladder cancer Current Visit: Yes Status: Chronic Assessment and plan: Stage IV. Patient had been receiving treatments at both [facility] and [place]. At this point he feels like he does not have much again for further cancer treatment and like to focus on comfort measures as discussed above. 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 Continue current treatment plan. Palliative-CN HPI - Data of Consult Patient: new to practice Consult date: 10/17/16 Requesting Physician: Louie Leach Primary Care Provider: Wily Shook - Consult Narrative Reason for consult: Goals of Care History of present illness: Mr. Gibson is a 85 year old male with history of stage IV bladder cancer who presents with hematuria. Patient states that he noticed blood in his urine and then developed weakness and generalized fatigue so he came to the emergency department. Patient states he received 2 units of blood and feels much better at this time. Patient states that he was undergoing cancer treatments and has seen oncologist at both [facility] and [place]. Patient states most recently he had 2 courses of radiation but did not feel that these helped him at all. At this time the patient is eating and drinking well, denies pain, nausea, vomiting, fever, chills. CC: Louie Leach Past Med Surg Social Fam HX - Past Medical History Medical history: arthritis, cancer, cardiomyopathy, coronary artery disease, hyperlipidemia, hypertension, malignancy, myocardial infarction, renal disease, other Psychiatric history: no psych history, other - Past Surgical History Surgical History: cancer surgery, coronary bypass (CABG), pacemaker/AICD, other , AICD, pacemaker - Social History Smoking Status: Never smoker Smokeless Tobacco Status: No Alcohol use: occasionally Drug use: none Medications and Allergies Aspirin [Lo-Dose Aspirin EC] 81 mg PO DAILY 10/17/16 [History] Atorvastatin [Lipitor] 40 mg PO HS 10/17/16 [History] Diltiazem HCl [Diltiazem 24Hr Cd] 120 mg PO DAILY 10/17/16 [History] Enalapril Maleate [Vasotec] 20 mg PO BID 10/17/16 [History] Metoprolol Succinate 50 mg PO DAILY 10/17/16 [History] Multivits,Ca,Min/Iron/FA/Lycop [Centrum Men's Tablet] 1 each PO DAILY 10/17/16 [ History] Allergies shellfish derived Allergy (Verified 05/17/15 20:21) Hives All systems: reviewed and no additional remarkable complaints except as stated Palliative Care-Exam - Constitutional Vitals: Temp Pulse Resp BP Pulse Ox 98.2 F 102 16 121/74 98 10/17/16 07:36 10/17/16 07:36 10/17/16 07:36 10/17/16 07:36 10/17/16 07:36 General appearance: Present: no acute distress - Head Head Exam: Present: atraumatic, normal inspection, normocephalic - Eye Eye exam: Present: EOMI, PERRL - ENT ENT exam: Present: mucous membranes dry - Respiratory Respiratory exam: Present: CTAB. Absent: rales, rhonchi, wheezes - Cardiovascular Cardiovascular exam: Present: RRR. Absent: gallop, rubs, systolic murmur - GI/Abdominal Exam GI/Abdominal exam: Present: normal bowel sounds, soft. Absent: distended, tenderness - Extremities Exam Extremities exam: Absent: pedal edema - Neurological Exam Neurological exam: Present: alert, oriented X3, no focal deficits Internal Medicine - CN: Reslt - Labs CBC & Chem 7: 10/16/16 23:15 10/16/16 23:15 Labs: Short CBC 10/16/16 Range/Units 23:15 WBC 6.9 (4.3-11.1) K/mcL Hgb 8.4 L (12.9-16.9) g/dL Hct 26.6 L (37.5-50.1) % Plt Count 192 (140-400) K/mcL BMP 10/16/16 23:15 Sodium 136 Potassium 5.4 H Chloride 113 H Carbon Dioxide 15 L BUN 47 H Creatinine 2.31 H Glucose 108 H Calcium 8.9 Cardiac Enzymes 10/16/16 Range/Units 23:15 Troponin I 0.01 (0-0.03) ng/mL Liver Function 10/16/16 Range/Units 23:15 Total Bilirubin 0.7 (0.2-1.2) mg/dL Direct Bilirubin 0.4 (0.0-0.5) mg/dL AST 16 (5-34) Units/L ALT 15 (0-55) Units/L Alkaline Phosphatase 92 (38-126) Units/L Albumin 2.6 L (3.5-5.0) g/dL - ABG Interpretation ABG results: PT/INR, D-dimer PT 12.1 Seconds (9.4-12.1) 10/16/16 23:15 D-Dimer 1576 ng/mLFEU (0-500) H 10/16/16 23:15 - Impressions Impressions Abdomen/Pelvis CT 10/16/16 20:51 IMPRESSION: Bilateral moderate hydronephrosis and hydroureter, likely due to obstruction by an heterogeneous soft tissue attenuation within the mostly dependent urinary bladder lumen. The density in the urinary bladder lumen is suggestive of mass and/or hemorrhagic products. Retroperitoneal and bilateral iliac chain adenopathy concerning for metastatic disease. Cholelithiasis. There is mildly increased attenuation within the central mesenteric root associated lymph nodes measuring 4 mm or less short, of questionable clinical significance. This finding is nonspecific and can be due to idiopathic, infectious/inflammatory, or neoplastic etiologies. Given the lymph nodes are less than 1 cm, neoplasm is considered less likely. Comparison with prior studies would be helpful. D/ / Luma Jc Cha, MD / Luma Jc Cha, MD Interpreting Provider: Luma Jc Cha, MD Chest CT 10/16/16 21:03 IMPRESSION: Several bilateral pulmonary nodules, at least 2 which are calcified. The largest 2 noncalcified nodules are located within the right upper lobe, 1 of which is likely inflammatory. Comparison with prior studies would be ideal if available. Short-term follow-up CT versus PET-CT is recommended. Basilar predominant interstitial fibrosis. D/ / Luma Jc Cha, MD / Luma Jc Cha, MD Interpreting Provider: Luma Jc Cha, MD Consult Discharge Plan - Plan Referrals: Chris Shetty MD [Primary Care Provider] - (patient most likely going to [facility]) Palliative Quality Palliative Quality: Screen for Code Status: NA (Patient deferred further code status discussion until present), Screen for Goals of Care: Yes, Screen for Pain: Yes, If Pain Regimen Started, Initiate Bowel Regimen: NA (Patient is having frequent bowel movements), Screen for Nausea/Vomitting: Yes Code Status: 10/16/16 20:43 Resuscitation Status: Active [RES] Routine Comment: Resuscitation Status: DNR-Comfort Care-Arrest <Calvin Melendez - Last Filed: 10/17/16 11:03> Date of Encounter: 10/17/16 Palliative-CN HPI - Data of Consult Requesting Physician: Louie Leach Primary Care Provider: Wily Shook - Consult Narrative History of present illness: Mr. Gibson is a 85 year old male CC: Louie Leach Palliative Care-Exam - Constitutional Vitals: Temp Pulse Resp BP Pulse Ox 98.2 F 102 16 121/74 98 10/17/16 07:36 10/17/16 07:36 10/17/16 07:36 10/17/16 07:36 10/17/16 07:36 Internal Medicine - CN: Reslt - Labs CBC & Chem 7: 10/16/16 23:15 10/16/16 23:15 Labs: Short CBC 10/16/16 Range/Units 23:15 WBC 6.9 (4.3-11.1) K/mcL Hgb 8.4 L (12.9-16.9) g/dL Hct 26.6 L (37.5-50.1) % Plt Count 192 (140-400) K/mcL BMP 10/16/16 23:15 Sodium 136 Potassium 5.4 H Chloride 113 H Carbon Dioxide 15 L BUN 47 H Creatinine 2.31 H Glucose 108 H Calcium 8.9 Cardiac Enzymes 10/16/16 Range/Units 23:15 Troponin I 0.01 (0-0.03) ng/mL Liver Function 10/16/16 Range/Units 23:15 Total Bilirubin 0.7 (0.2-1.2) mg/dL Direct Bilirubin 0.4 (0.0-0.5) mg/dL AST 16 (5-34) Units/L ALT 15 (0-55) Units/L Alkaline Phosphatase 92 (38-126) Units/L Albumin 2.6 L (3.5-5.0) g/dL - ABG Interpretation ABG results: PT/INR, D-dimer PT 12.1 Seconds (9.4-12.1) 10/16/16 23:15 D-Dimer 1576 ng/mLFEU (0-500) H 10/16/16 23:15 - Impressions Impressions Abdomen/Pelvis CT 10/16/16 20:51 IMPRESSION: Bilateral moderate hydronephrosis and hydroureter, likely due to obstruction by an heterogeneous soft tissue attenuation within the mostly dependent urinary bladder lumen. The density in the urinary bladder lumen is suggestive of mass and/or hemorrhagic products. Retroperitoneal and bilateral iliac chain adenopathy concerning for metastatic disease. Cholelithiasis. There is mildly increased attenuation within the central mesenteric root associated lymph nodes measuring 4 mm or less short, of questionable clinical significance. This finding is nonspecific and can be due to idiopathic, infectious/inflammatory, or neoplastic etiologies. Given the lymph nodes are less than 1 cm, neoplasm is considered less likely. Comparison with prior studies would be helpful. D/ / Luma Jc Cha, MD / Luma Jc Cha, MD Interpreting Provider: Luma Jc Cha, MD Chest CT 10/16/16 21:03 IMPRESSION: Several bilateral pulmonary nodules, at least 2 which are calcified. The largest 2 noncalcified nodules are located within the right upper lobe, 1 of which is likely inflammatory. Comparison with prior studies would be ideal if available. Short-term follow-up CT versus PET-CT is recommended. Basilar predominant interstitial fibrosis. D/ / Luma Jc Cha, MD / Luma Jc Cha, MD Interpreting Provider: Luma Jc Cha, MD - Attending Attestation I examined this patient and my medical decision-making was reviewed with the COUNSELING PSYCHOLOGIST/PA/Advanced Practice Nurse/Resident Physician. I agree with the documented findings, disposition and treatment plan as described except to the extent set forth below. Palliative Quality Code Status: 10/16/16 20:43 Resuscitation Status: Active [RES] Routine Comment: Resuscitation Status: DNR-Comfort Care-Arrest
[2016-10-17] MEDS ORDERED: Sennosides/Docusate Sodium TABLET PO PRN (11:23)
[2016-10-17] MEDS: Sodium Bicarbonate 150 MEQ in D5% in Water 1,000 ML IVC SCH ×2 (11:27→23:14)
--- NOTE | 2016-10-17 11:52 | Electrocardiograph Report ---
[address] [place], [place] [address] Test Date: 2016-10-16 Pat Name: Perico Gibson Department: 104 Room: 2A14 Gender: M Punch Card Operator: : [id number] Requested By: Jenny Zamarripa Order Number: [id number] Reading MD: Cassidy Prieto Measurements Intervals [place] Rate: 81 P: 60 FL: 142 QRS: -86 QRSD: 157 T: 73 QT: 426 QTc: 463 Interpretive Statements ELECTRONIC VENTRICULAR PACEMAKER Electronically Signed On 10-17-2016 11:50:55 EDT by Cassidy Prieto
--- NOTE | 2016-10-17 13:10 | Event Note ---
Date of Encounter: 10/17/16 Time of Encounter: 13:08 Patient seen on the bedside. Admitted for advanced bladder cancer, presented with hematuria and anemia. Status post 1 unit of blood transfusion overnight. Reports that he feels much better than yesterday, he says he does not want any kind of active intervention done and wishes to remain comfort care only. Palliative has been consulted, he does not even want peralta catheterization or irrigation. We will continue palliative recommendations, patient leaning towards hospice at this time. the does not want to pursue any hospice measures and wants to take him home with HH, hwoever she feels he is too weak at this time to be taken care of. Continue comfort care measures.
--- NOTE | 2016-10-17 14:55 | Discharge Summary ---
Date of Encounter: 10/17/16 Time of Encounter: 14:52 - Discharge Diagnosis (1) Bladder cancer Priority: Primary Status: Chronic Qualifiers: Bladder location: unspecified site Qualified Code(s): C67.9 - Malignant neoplasm of bladder, unspecified (2) Gross hematuria Priority: Primary Status: Acute (3) Acute blood loss anemia Priority: Primary Status: Acute (4) Goals of care, counseling/discussion Priority: Secondary Status: Acute - Discharge Medications Home Medications: Aspirin [Lo-Dose Aspirin EC] 81 mg PO DAILY 10/17/16 [History] Atorvastatin [Lipitor] 40 mg PO HS 10/17/16 [History] Diltiazem HCl [Diltiazem 24Hr Cd] 120 mg PO DAILY 10/17/16 [History] Enalapril Maleate [Vasotec] 20 mg PO BID 10/17/16 [History] Metoprolol Succinate 50 mg PO DAILY 10/17/16 [History] Multivits,Ca,Min/Iron/FA/Lycop [Centrum Men's Tablet] 1 each PO DAILY 10/17/16 [ History] Allergies/Adverse Reactions: Allergies shellfish derived Allergy (Verified 05/17/15 20:21) Hives Procedures/tests Complete & Pending: Procedures Performed prior 72 hours Category Date Time Status CT abd pelvis wo no iv no oral [CT] Routine Cat Scan 10/16/16 20:[address] chest w/o contrast [CT chest wo con] [CT] Routine Cat Scan 10/16/16 21:03 Completed Date of admission: 10/16/16 18:39 Primary care physician: Wily Shook Consults: 10/16/16 20:48 Consult to Occupational Therapy [CONS] Routine Comment: Evaluate, develop and implement POC Consult to Physical Therapy [CONS] Routine Comment: Evaluate, develop and implement POC 10/17/16 01:08 Consult to Palliative Care [CONS] Routine Comment: Consulting Provider: Palliative Care Nicky Discharging clinician: Louie Leach Anticipated date of discharge: 10/17/16 - Patient Status Condition: Fair - Discharge Instructions Follow Up With: Donna Man MD [Non-Partnered Physician] - 10/26/16 11:15 am (Please follow up as schedule...) Forms: ED Satisfaction Letter Hospital course: Mr. Gibson is a 85 year old male - Time Spent with Patient Total time spent providing and/or coordinating discharge services: - Constitutional Vitals: Temp Pulse Resp BP Pulse Ox 98.5 F 99 16 99/62 97 10/17/16 11:34 10/17/16 11:34 10/17/16 11:34 10/17/16 11:34 10/17/16 11:34 General appearance: Present: mild distress, A&O X 3, answers questions appropriately. Absent: cachectic
[2016-10-18] MEDS: Metoprolol XL (24 HR) Succ 25 MG TAB.ER.24H PO SCH (08:53)
[2016-10-18] MEDS: Aspirin Enteric Coated 81 MG Tablet PO SCH (08:53)
[2016-10-18] MEDS: Multivit/Ca/Min/Fe/FA 1 TAB TABLET PO SCH (08:53)
[2016-10-18] MEDS: Diltiazem CD (24hr) 120 MG CAPSULE PO SCH (08:53)
[2016-10-18 09:18] LABS: Basophils % 0.1 %; Eosinophils # 0.1 K/mcL (0.0-0.6); Eosinophils % 0.5 %; Hematocrit 25.5 % (37.5-50.1); Hemoglobin 8.4 g/dL (12.9-16.9); Immature Granulocytes % 0.3 % (0-4); Lymphocytes # 2.3 K/mcL (0.6-4.6); Lymphocytes % 24.9 %; Mean Corpuscular HGB Conc 32.9 g/dL (31.6-35.5); Mean Corpuscular Hemoglobin 31.8 pg (28.0-33.3); Mean Corpuscular Volume 96.6 fL (83.0-100.0); Mean Platelet Volume 8.7 fL (9.4-12.4); Monocytes # 0.7 K/mcL (0.0-1.3); Monocytes % 7.1 %; Neutrophils # 6.1 K/mcL (1.6-8.9); Platelet Count 149 K/mcL (140-400); Red Blood Count 2.64 M/mcL (4.19-5.50); Red Cell Distribution Width 16.9 % (11.5-14.5); Segmented Neutrophils % 67.1 %
[2016-10-18 09:30] LABS: Calcium 8.3 mg/dL (8.6-10.8); Potassium 3.7 mEq/L (3.5-4.5)
--- NOTE | 2016-10-18 09:43 | Palliative Progress Note ---
<Chris Hickman Marivel - Last Filed: 10/18/16 09:41> Date of Encounter: 10/18/16 Time of Encounter: 08:10 - Assessment and plan (1) Goals of care, counseling/discussion Current Visit: Yes Status: Acute Assessment and plan: Discussed at length the options for care once the patient is discharged. The stated that she would prefer to take care of him at home however she did not seem interested in hearing possible options for home health. The social media intern then spoke with the patient at length regarding home health options and the patient and declined services at this time. Discussed again with the patient this morning he continues to decline services. They are not interested in hospice services either. Goals of care to return home where will continue to act as the primary caregiver. CODE STATUS remains DNR CCA. (2) Anemia Current Visit: Yes Status: Acute Assessment and plan: Stable today. Patient denies hematuria. Further management per primary team. Qualifiers: Anemia type: other cause Other causes of anemia: acute posthemorrhagic Qualified Code(s): D62 - Acute posthemorrhagic anemia (3) Bladder cancer Current Visit: Yes Status: Chronic Assessment and plan: Patient no longer wants cancer treatments. Goals of care as discussed above. 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 - Time Spent With Patient Total time spent is greater than 50% in coordination of care (as documented) at patient's floor/unit and/or counseling patient: - Subjective Interval history: Patient seen and examined at bedside. Patient has no complaints today. He denies hematuria. He states he is not in any pain, is eating and drinking well. Denies nausea, vomiting, diarrhea. Patient was up moving around with a walker yesterday. - Constitutional Vitals: Abnormal lab results RBC 2.64 M/mcL (4.19-5.50) L 10/18/16 08:59 Hgb 8.4 g/dL (12.9-16.9) L 10/18/16 08:59 Hct 25.5 % (37.5-50.1) L 10/18/16 08:59 RDW 16.9 % (11.5-14.5) H 10/18/16 08:59 MPV 8.7 fL (9.4-12.4) L 10/18/16 08:59 ESR 86 mm/hr (0-10) H 10/16/16 23:15 APTT 24.8 Seconds (26.0-36.0) L 10/16/16 23:15 D-Dimer 1576 ng/mLFEU (0-500) H 10/16/16 23:15 VBG pCO2 26 mmHg (41-51) L 10/16/16 23:15 VBG pO2 123 mmHg (25-40) H 10/16/16 23:15 VBG HCO3 15.4 mEq/L (21-27) L 10/16/16 23:15 BUN 40 mg/dL (8-26) H 10/18/16 08:59 Creatinine 2.15 mg/dL (0.72-1.25) H 10/18/16 08:59 Est GFR ( Amer) 36 (> 60) L 10/18/16 08:59 Est GFR (Non-Af Amer) 29 (> 60) L 10/18/16 08:59 Glucose 169 mg/dL (70-99) H 10/18/16 08:59 Hemoglobin A1c 6.1 % (-5.6) H 10/16/16 23:15 Calcium 8.3 mg/dL (8.6-10.8) L 10/18/16 08:59 C-Reactive Protein 36 mg/L (Less than 5) H 10/16/16 23:15 Albumin 2.6 g/dL (3.5-5.0) L 10/16/16 23:15 Albumin/Globulin Ratio 0.7 (1.1-2.2) L 10/16/16 23:15 HDL Cholesterol 27 mg/dL (40-59) L 10/16/16 23:15 - ENT ENT exam: Present: mucous membranes moist - Respiratory Respiratory exam: Present: CTAB. Absent: rales, rhonchi, wheezes - Cardiovascular Cardiovascular exam: Present: tachycardia. Absent: gallop, rubs, systolic murmur - GI/Abdominal GI/Abdominal exam: Present: normal bowel sounds, soft. Absent: distended, tenderness - Extremities Exam Extremities exam: Absent: pedal edema - Neurological Exam Neurological exam: Present: alert, CN II-XII intact, oriented X3, no focal deficits Palliative Quality Palliative Quality: Screen for Code Status: NA (Patient deferred further code status discussion until present), Screen for Goals of Care: Yes, Screen for Pain: Yes, If Pain Regimen Started, Initiate Bowel Regimen: NA (Patient is having frequent bowel movements), Screen for Nausea/Vomitting: Yes Code Status: 10/16/16 20:43 Resuscitation Status: Active [RES] Routine Comment: Resuscitation Status: DNR-Comfort Care-Arrest - Labs CBC & Chem 7: 10/18/16 08:59 10/18/16 08:59 Labs: Laboratory Results - last 24 hr 10/18/16 10/18/16 08:59 08:59 WBC 9.2 RBC 2.64 L Hgb 8.4 L Hct 25.5 L MCV 96.6 MCH 31.8 MCHC 32.9 RDW 16.9 H Plt Count 149 MPV 8.7 L Immature Gran % 0.3 Seg Neutrophils % 67.1 Lymphocytes % 24.9 Monocytes % 7.1 Eosinophils % 0.5 Basophils % 0.1 Neutrophils # 6.1 Lymphocytes # 2.3 Monocytes # 0.7 Eosinophils # 0.1 Basophils # 0.0 Sodium 137 Potassium 3.7 D Chloride 101 Carbon Dioxide 23 BUN 40 H Creatinine 2.15 H Est GFR ( Amer) 36 L Est GFR (Non-Af Amer) 29 L BUN/Creatinine Ratio 19 Glucose 169 H Calculated Osmolality 298 Calcium 8.3 L - ABG Interpretation ABG results: PT/INR, D-dimer PT 12.1 Seconds (9.4-12.1) 10/16/16 23:15 D-Dimer 1576 ng/mLFEU (0-500) H 10/16/16 23:15 Consult Discharge Plan - Plan Referrals: Donna Man MD [Non-Partnered Physician] - 10/26/16 11:15 am (Please follow up as schedule...) <Calvin Melendez - Last Filed: 10/18/16 10:02> Date of Encounter: 10/18/16 - Assessment and plan (1) Goals of care, counseling/discussion Current Visit: Yes Status: Acute - Time Spent With Patient Total time spent is greater than 50% in coordination of care (as documented) at patient's floor/unit and/or counseling patient: - Constitutional Vitals: Abnormal lab results RBC 2.64 M/mcL (4.19-5.50) L 10/18/16 08:59 Hgb 8.4 g/dL (12.9-16.9) L 10/18/16 08:59 Hct 25.5 % (37.5-50.1) L 10/18/16 08:59 RDW 16.9 % (11.5-14.5) H 10/18/16 08:59 MPV 8.7 fL (9.4-12.4) L 10/18/16 08:59 ESR 86 mm/hr (0-10) H 10/16/16 23:15 APTT 24.8 Seconds (26.0-36.0) L 10/16/16 23:15 D-Dimer 1576 ng/mLFEU (0-500) H 10/16/16 23:15 VBG pCO2 26 mmHg (41-51) L 10/16/16 23:15 VBG pO2 123 mmHg (25-40) H 10/16/16 23:15 VBG HCO3 15.4 mEq/L (21-27) L 10/16/16 23:15 BUN 40 mg/dL (8-26) H 10/18/16 08:59 Creatinine 2.15 mg/dL (0.72-1.25) H 10/18/16 08:59 Est GFR ( Amer) 36 (> 60) L 10/18/16 08:59 Est GFR (Non-Af Amer) 29 (> 60) L 10/18/16 08:59 Glucose 169 mg/dL (70-99) H 10/18/16 08:59 Hemoglobin A1c 6.1 % (-5.6) H 10/16/16 23:15 Calcium 8.3 mg/dL (8.6-10.8) L 10/18/16 08:59 C-Reactive Protein 36 mg/L (Less than 5) H 10/16/16 23:15 Albumin 2.6 g/dL (3.5-5.0) L 10/16/16 23:15 Albumin/Globulin Ratio 0.7 (1.1-2.2) L 10/16/16 23:15 HDL Cholesterol 27 mg/dL (40-59) L 10/16/16 23:15 - Attending Attestation I examined this patient and my medical decision-making was reviewed with the REORDERING CLERK/PA/Advanced Practice Nurse/Resident Physician. I agree with the documented findings, disposition and treatment plan as described except to the extent set forth below. Palliative Quality Code Status: 10/16/16 20:43 Resuscitation Status: Active [RES] Routine Comment: Resuscitation Status: DNR-Comfort Care-Arrest - Labs CBC & Chem 7: 10/18/16 08:59 10/18/16 08:59 Labs: Laboratory Results - last 24 hr 10/18/16 10/18/16 08:59 08:59 WBC 9.2 RBC 2.64 L Hgb 8.4 L Hct 25.5 L MCV 96.6 MCH 31.8 MCHC 32.9 RDW 16.9 H Plt Count 149 MPV 8.7 L Immature Gran % 0.3 Seg Neutrophils % 67.1 Lymphocytes % 24.9 Monocytes % 7.1 Eosinophils % 0.5 Basophils % 0.1 Neutrophils # 6.1 Lymphocytes # 2.3 Monocytes # 0.7 Eosinophils # 0.1 Basophils # 0.0 Sodium 137 Potassium 3.7 D Chloride 101 Carbon Dioxide 23 BUN 40 H Creatinine 2.15 H Est GFR ( Amer) 36 L Est GFR (Non-Af Amer) 29 L BUN/Creatinine Ratio 19 Glucose 169 H Calculated Osmolality 298 Calcium 8.3 L - ABG Interpretation ABG results: PT/INR, D-dimer PT 12.1 Seconds (9.4-12.1) 10/16/16 23:15 D-Dimer 1576 ng/mLFEU (0-500) H 10/16/16 23:15
--- NOTE | 2016-10-18 10:11 | Event Note ---
Date of Encounter: 10/18/16 Time of Encounter: 10:10 The patient is happy with his CODE STATUS, DNR CCA. His have given a great deal of consideration to hospice and/or home health care and do not wish to have it at this time. The patient's has had a bad experience with hospice in the past will further she does not want to have a bunch of strangers in their home. They both understand that he can avail himself of hospice whenever he wishes. Palliative care team did recommend home health care for the patient and his at this time they are declining those services. We have nothing further to offer at this time and will sign off please feel free to reconsult as needed.
[2016-10-18 11:39] VITALS: BP 112/54
[2016-10-18] MEDS: Sodium Bicarbonate 150 MEQ in D5% in Water 1,000 ML IVC SCH (13:29)
[2016-10-18] MEDS ORDERED: *HR* OxyCODONE Immed Rel 5 MG TABLET PO PRN ×2 (13:52)
--- NOTE | 2016-10-18 15:19 | Discharge Summary ---
Date of Encounter: 10/18/16 Time of Encounter: 10:00 - Discharge Diagnosis (1) Acute kidney injury superimposed on chronic kidney disease Priority: Primary Status: Acute (2) Gross hematuria Priority: Primary Status: Acute (3) Anemia Priority: Primary Status: Chronic Qualifiers: Anemia type: other cause Other causes of anemia: acute posthemorrhagic Qualified Code(s): D62 - Acute posthemorrhagic anemia (4) CAD (coronary artery disease) Priority: Secondary Status: Chronic Qualifiers: Coronary Disease-Associated Artery/Lesion type: bypass graft [place] vs. transplanted heart: [place] heart Associated angina: without angina Qualified Code(s): I25.810 - Atherosclerosis of coronary artery bypass graft(s) without angina pectoris (5) CHF (congestive heart failure) Priority: Secondary Status: Chronic Qualifiers: Congestive heart failure type: combined Congestive heart failure chronicity : chronic Qualified Code(s): I50.42 - Chronic combined systolic (congestive) and diastolic (congestive) heart failure (6) Atrial fibrillation Priority: Secondary Status: Chronic Qualifiers: Atrial fibrillation type: paroxysmal Qualified Code(s): I48.0 - Paroxysmal atrial fibrillation (7) Bladder cancer Priority: Secondary Status: Chronic Qualifiers: Bladder location: unspecified site Qualified Code(s): C67.9 - Malignant neoplasm of bladder, unspecified (8) 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 - Discharge Medications Home Medications: Aspirin [Lo-Dose Aspirin EC] 81 mg PO DAILY 10/17/16 [History] Atorvastatin [Lipitor] 40 mg PO HS 10/17/16 [History] Diltiazem HCl [Diltiazem 24Hr Cd] 120 mg PO DAILY 10/17/16 [History] Enalapril Maleate [Vasotec] 20 mg PO BID 10/17/16 [History] Metoprolol XL (24 HR) Succ [Toprol Xl] 50 mg PO DAILY 10/17/16 [History] Multivits,Ca,Min/Iron/FA/Lycop [Centrum Men's Tablet] 1 each PO DAILY 10/17/16 [ History] Allergies/Adverse Reactions: Allergies shellfish derived Allergy (Verified 05/17/15 20:21) Hives Procedures/tests Complete & Pending: Procedures Performed prior 72 hours Category Date Time Status CT abd pelvis wo no iv no oral [CT] Routine Cat Scan 10/16/16 20:[address] chest w/o contrast [CT chest wo con] [CT] Routine Cat Scan 10/16/16 21:03 Completed Date of admission: 10/16/16 18:39 Primary care physician: Wily Shook Consults: 10/16/16 20:48 Consult to Occupational Therapy [CONS] Routine Comment: Evaluate, develop and implement POC Consult to Physical Therapy [CONS] Routine Comment: Evaluate, develop and implement POC 10/17/16 01:08 Consult to Palliative Care [CONS] Routine Comment: Consulting Provider: Palliative Care Nicky Discharging clinician: Xin Avila Anticipated date of discharge: 10/18/16 - Patient Status Disposition: Home, Self-Care Condition: Fair Functional capacity at discharge: independent ambulation Overall status at discharge: patient is progressing back to baseline - Discharge Instructions Instructions: Anemia (GEN) Follow Up With: Donna Mna MD [Non-Partnered Physician] - 10/26/16 11:15 am (Please follow up as schedule...) Forms: ED Satisfaction Letter - Diet and Activity Activity: resume usual activities as tolerated Diet: low fat, low cholesterol, low salt diet Hospital course: Mr. Gibson is a 85 year old male with known history of stage IV urinary bladder cancer was admitted with generalized weakness and lethargy. He was noted to have acute blood loss anemia due to ongoing hematuria associated with his cancer and received 2 units PRBC transfusion with improvement in hemoglobin. CT abdomen/pelvis showed moderate bilateral hydronephrosis likely due to obstructive uropathy from bladder mass versus blood clots, along with retroperitoneal lymphadenopathy. Patient has been explained about this and recommended Bauman catheterization along with continuous bladder irrigation, all of which have been declined by him. Previous hospitalists have discussed with patient and his regarding his diagnosis and despite understanding the risks and benefits of treatment, they have declined further aggressive management. Palliative care team has been involved and patient has been offered home health and hospice services, which the patient and his have currently declined. His hemoglobin is now stable and he remains asymptomatic. He does have mild hematuria which has been going on for a long time, according to him and he is anxious to be discharged. He is otherwise medically stable for discharge with outpatient follow-up. - Time Spent with Patient Total time spent providing and/or coordinating discharge services: Greater than 30 minutes (45 min) - Constitutional Vitals: Temp Pulse Resp BP Pulse Ox 98.9 F 94 18 112/54 95 10/18/16 11:38 10/18/16 11:38 10/18/16 11:38 10/18/16 11:38 10/18/16 11:38 General appearance: Present: A&O X 3, answers questions appropriately. Absent: cachectic - Respiratory Respiratory exam: Present: CTAB. Absent: accessory muscle use, rales, rhonchi, wheezes - Cardiovascular Cardiovascular exam: Present: RRR, +S1, +S2. Absent: diastolic murmur, gallop, rubs, systolic murmur
== END 2016-10-18 16:20 | disposition home or self-care (01) ==
LOC: 2ANU 16:14 → EMEROO 16:14 → SUATTDRO 18:39 → 2ANU 20:05
PROVIDERS: ADMIT Internal Medicine; ATTEND Internal Medicine

== ENCOUNTER 2016-12-13 15:03 | Inpatient (IN) ==
[2016-12-13] MEDS ORDERED: 0.9 % Sodium Chloride 1,000 ML IVC ONE ×2 (15:43→17:14)
--- NOTE | 2016-12-13 15:46 | Emergency Department Note ---
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 She reports that he is an 86-year- old male with past medical history of recurrent metastatic bladder cancer who has been increasingly weak over the last 2-3 days to the point where he has not been able to perform his ADLs even with significant assistance today. He has been short of breath even at rest today and has an having increasingly severe hematuria over the last 2 weeks. He has hematuria at baseline over the last several months, it has been much more significant over the last couple weeks. He has not had a urinary retention. He has not had any altered mental status, headache or fever, chest pain, productive cough, vomiting or abdominal pain. He has not had a diarrhea or constipation. He has had a very poor appetite that is worse over the last week or so. No focal deficits, but he does have significant global weakness. He is not currently being treated for the bladder cancer. 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 Pain Scale: 0 - Related Data Home Medications Medication Instructions Recorded Confirmed Diltiazem HCl [Diltiazem 24Hr Cd] 120 mg PO DAILY 10/17/16 12/13/16 Enalapril Maleate [Vasotec] 20 mg PO BID 10/17/16 12/13/16 Metoprolol XL (24 HR) Succ [Toprol 50 mg PO DAILY 10/17/16 12/13/16 Xl] Multivits,Ca,Min/Iron/FA/Lycop 1 each PO DAILY 10/17/16 12/13/16 [Centrum Men's Tablet] Allergies Allergy/AdvReac Type Severity Reaction Status Date / Time shellfish derived Allergy Hives Verified 05/17/15 20:21 All systems ED: reviewed and negative except as stated. Past Medical History - Past Medical History Attestation: Yes The following information was validated with the patient. Source: patient, obtained from family Medical history: Reports: arthritis, cancer, cardiomyopathy, coronary artery disease, hyperlipidemia, hypertension, malignancy, myocardial infarction, renal disease, other Surgical history: Reports: cancer surgery, coronary bypass (CABG), pacemaker/ AICD, other, AICD, pacemaker Psychiatric history: Reports: no psych history, other - Social History Smoking Status: Never smoker Smokeless Tobacco Status: No Alcohol use: Reports: occasionally Drug use: Reports: none Physical Exam - Head Head exam: atraumatic, normocephalic, normal inspection - Eye Pale conjunctiva, PERRL, EOMI - ENT Mildly dry mucous membranes. - Neck Neck exam: Present: normal inspection, full ROM, trachea midline - Chest Chest inspection: Present: normal inspection, symmetric chest wall rise - Respiratory Respiratory exam: Clear to auscultation bilaterally without wheezes rales or rhonchi Cardiovascular Cardiovascular exam: Present: regular rate, normal rhythm, normal heart sounds - Abdominal Exam Mild lower abdominal tenderness without distention or rigidity. - Extremities Exam Extremities exam: Present: normal inspection, full ROM - Expanded Lower Extremity Exam Hip/Pelvis exam: Present: normal inspection, full ROM - Back Exam Back exam: Present: normal inspection, full ROM. Absent: tenderness, CVA tenderness (R), CVA tenderness (L) - Neurological Exam Neurological exam: Present: alert, oriented to person and place, CN II-XII intact. Moves all extremities with motor 4 out of 5 in all extremities. No focal motor or sensory deficits. - Psychiatric Psychiatric exam: Present: normal affect, normal mood - Skin Skin exam: Present: warm, dry, intact, pallor - General Limitations: no limitations General appearance: alert Course - Reevaluation(s) Reevaluation #1: Potassium elevated to 6.2 with creatinine elevated to 2.94 with BUNs 70. These are higher than prior episode of acute renal failure. Hemoglobin is 8.4 which is down from 9.6 on prior discharge. Patient's blood pressure is stable with IV fluids here. Type and screen was sent in case the patient needs fluid while in the hospital. He was given bicarbonate, glucose, insulin, and Lasix. He is also given 2 L of normal saline. He is accepted to for further evaluation and management on the hospitalist service. Time: 17:54 Vital Signs Temperature 97.6 F 12/13/16 15:22 Pulse Rate 89 12/13/16 15:22 Respiratory Rate 20 12/13/16 15:22 Blood Pressure 114/98 12/13/16 15:22 O2 Sat by Pulse Oximetry 96 12/13/16 15:22 Temperature 97.6 F 12/13/16 15:22 Pulse Rate 91 12/13/16 17:49 Respiratory Rate 18 12/13/16 17:49 Blood Pressure 89/75 12/13/16 17:49 O2 Sat by Pulse Oximetry 99 12/13/16 17:49 Oxygen Delivery Oxygen Delivery Room Air Medical Decision Making - Lab Data Result diagrams: 12/13/16 16:29 12/13/16 16:29 Lab Results 12/13/16 12/13/16 12/13/16 Range/Units 16:29 16:29 16:29 WBC 8.7 (4.3-11.1) K/mcL RBC 2.73 L (4.19-5.50) M/mcL Hgb 8.4 L (12.9-16.9) g/dL Hct 27.2 L (37.5-50.1) % MCV 99.6 (83.0-100.0) fL MCH 30.8 (28.0-33.3) pg MCHC 30.9 L (31.6-35.5) g/dL RDW 14.8 H (11.5-14.5) % Plt Count 198 (140-400) K/mcL MPV 8.8 L (9.4-12.4) fL Immature Gran % 0.5 (0-4) % Seg Neutrophils % 73.4 % Lymphocytes % 15.7 % Monocytes % 9.9 % Eosinophils % 0.3 % Basophils % 0.2 % Neutrophils # 6.4 (1.6-8.9) K/mcL Lymphocytes # 1.4 (0.6-4.6) K/mcL Monocytes # 0.9 (0.0-1.3) K/mcL Eosinophils # 0.0 (0.0-0.6) K/mcL Basophils # 0.0 (0.0-0.2) K/mcL Sodium 134 L (136-145) mEq/L Potassium 6.2 H (3.5-4.5) mEq/L Chloride 109 (98-109) mEq/L Carbon Dioxide 14 L (19-29) mEq/L BUN 70 H (8-26) mg/dL Creatinine 2.94 H (0.72-1.25) mg/dL Est GFR ( Amer) 25 L (> 60) Est GFR (Non-Af Amer) 20 L (> 60) BUN/Creatinine Ratio 24 (6-26) Glucose 149 H (70-99) mg/dL Calculated Osmolality 301 H (280-300) Calcium 9.3 (8.6-10.8) mg/dL Total Bilirubin 0.4 (0.2-1.2) mg/dL AST 29 (5-34) Units/L ALT 29 (0-55) Units/L Alkaline Phosphatase 109 (38-126) Units/L Troponin I 0.04 H* (0-0.03) ng/mL Serum Total Protein 7.4 (6.0-8.3) g/dL Albumin 2.5 L (3.5-5.0) g/dL Globulin 4.9 H (2.4-3.5) g/dL Albumin/Globulin Ratio 0.5 L (1.1-2.2) Blood Type Antibody Screen 12/13/16 Range/Units 16:29 WBC (4.3-11.1) K/mcL RBC (4.19-5.50) M/mcL Hgb (12.9-16.9) g/dL Hct (37.5-50.1) % MCV (83.0-100.0) fL MCH (28.0-33.3) pg MCHC (31.6-35.5) g/dL RDW (11.5-14.5) % Plt Count (140-400) K/mcL MPV (9.4-12.4) fL Immature Gran % (0-4) % Seg Neutrophils % % Lymphocytes % % Monocytes % % Eosinophils % % Basophils % % Neutrophils # (1.6-8.9) K/mcL Lymphocytes # (0.6-4.6) K/mcL Monocytes # (0.0-1.3) K/mcL Eosinophils # (0.0-0.6) K/mcL Basophils # (0.0-0.2) K/mcL Sodium (136-145) mEq/L Potassium (3.5-4.5) mEq/L Chloride (98-109) mEq/L Carbon Dioxide (19-29) mEq/L BUN (8-26) mg/dL Creatinine (0.72-1.25) mg/dL Est GFR ( Amer) (> 60) Est GFR (Non-Af Amer) (> 60) BUN/Creatinine Ratio (6-26) Glucose (70-99) mg/dL Calculated Osmolality (280-300) Calcium (8.6-10.8) mg/dL Total Bilirubin (0.2-1.2) mg/dL AST (5-34) Units/L ALT (0-55) Units/L Alkaline Phosphatase (38-126) Units/L Troponin I (0-0.03) ng/mL Serum Total Protein (6.0-8.3) g/dL Albumin (3.5-5.0) g/dL Globulin (2.4-3.5) g/dL Albumin/Globulin Ratio (1.1-2.2) Blood Type B POSITIVE Antibody Screen NEGATIVE - EKG Data EKG #1 EKG attestation: Yes I reviewed and interpreted this EKG. EKG results narrative: EKG shows ventricular pacemaker 87 no further interpretation available. Critical Care Time Critical Care Time: Yes Total Critical Care Time: 35 Attestation: Critical care time spent in medical management of his anemia as well as his high potassium Attestation Statement - Attestation Attestation: I examined this patient and my medical decision-making was reviewed with the DISCOVERY MANAGER/PA/Advanced Practice Nurse/Resident Physician. I agree with the documented findings, disposition and treatment plan as described except to the extent set forth below.
[2016-12-13 16:45] LABS: Basophils % 0.2 %; Eosinophils % 0.3 %; Hematocrit 27.2 % (37.5-50.1); Hemoglobin 8.4 g/dL (12.9-16.9); Immature Granulocytes % 0.5 % (0-4); Lymphocytes # 1.4 K/mcL (0.6-4.6); Lymphocytes % 15.7 %; Mean Corpuscular HGB Conc 30.9 g/dL (31.6-35.5); Mean Corpuscular Hemoglobin 30.8 pg (28.0-33.3); Mean Corpuscular Volume 99.6 fL (83.0-100.0); Mean Platelet Volume 8.8 fL (9.4-12.4); Monocytes # 0.9 K/mcL (0.0-1.3); Monocytes % 9.9 %; Neutrophils # 6.4 K/mcL (1.6-8.9); Platelet Count 198 K/mcL (140-400); Red Blood Count 2.73 M/mcL (4.19-5.50); Red Cell Distribution Width 14.8 % (11.5-14.5); Segmented Neutrophils % 73.4 %
[2016-12-13 16:59] LABS: Albumin 2.5 g/dL (3.5-5.0); Albumin/Globulin Ratio 0.5 (1.1-2.2); Bilirubin,Total 0.4 mg/dL (0.2-1.2); Calcium 9.3 mg/dL (8.6-10.8); Globulin 4.9 g/dL (2.4-3.5); Potassium 6.2 mEq/L (3.5-4.5); Total Protein 7.4 g/dL (6.0-8.3)
[2016-12-13] MEDS ORDERED: Insulin Regular, Human 100 UNIT/ML IV ONE (17:13)
[2016-12-13] MEDS ORDERED: Sodium Bicarbonate 50 MEQ/50 ML VIAL IVP ONE (17:14)
[2016-12-13] MEDS ORDERED: *HR* Dextrose 50 % in Water (Syg) 50 ML SYRINGE IVP ONE (17:14)
[2016-12-13] MEDS ORDERED: Furosemide 40 MG/4 ML VIAL IVP ONE (17:15)
[2016-12-13] MEDS ORDERED: Naloxone 0.4 MG/ML INJ IVP PRN (20:13)
[2016-12-13] MEDS ORDERED: Acetaminophen 325 MG TABLET PO PRN (20:15)
[2016-12-13] MEDS ORDERED: 0.9 % Sodium Chloride 1,000 ML IVC SCH ×2 (20:15→20:56)
[2016-12-13] MEDS ORDERED: *HR* HYDROcodone/Acet 5/325 mg TABLET PO PRN (20:15)
--- NOTE | 2016-12-13 20:20 | Internal Med History&Physical ---
<Anjana Toro - Last Filed: 12/13/16 20:41> Date of Encounter: 12/13/16 Time of Encounter: 20:20 Assessment and Plan (1) Dehydration Current visit: Yes Status: Acute 1 patient has poor oral intake he is hypotensive weak with ARIN- we will give IV fluids overnight 2 monitor intake and output 3 encourage oral intake (2) Hyperkalemia Current visit: Yes Status: Acute 1 potassium is 6.2 patient was given bicarbonate and glucose and insulin and Lasix in the ER we will continue to monitor potassium 2 continuous cardiac monitoring for now (3) Acute kidney injury superimposed on chronic kidney disease Current visit: No Status: Acute 1 patient baseline creatinine is around 1.5 however over the last month it has been around 2.3 and today is the highest it has been at 2.9. We will continue to monitor creatinine 2 we will give IV fluids overnight 3 monitor intake and output 4 daily weights. 5 avoid nephrotoxins (4) CAD (coronary artery disease) Current visit: No Status: Chronic 1 patient has history of coronary artery disease we will continue with metoprolol and statin Qualifiers: Coronary Disease-Associated Artery/Lesion type: bypass graft [place] vs. transplanted heart: [place] heart Associated angina: without angina Qualified Code(s): I25.810 - Atherosclerosis of coronary artery bypass graft(s) without angina pectoris (5) Iron deficiency anemia due to chronic blood loss Current visit: No Status: Chronic 1 patient has chronic hematuria as well as urethral bleeding related to his bladder cancer. We will continue to monitor H&H patient has been typed and screened transfuse as needed (6) DVT prophylaxis Current visit: Yes Status: Acute SCD Internal Medicine - H&P: HPI Chief complaint: weakness Admitted From: Emergency Dept Plans for Post Hospital Care: Home History of present illness: Mr. Gibson is a 86 year old male with medical history of coronary artery disease CABG, CK D stage III hypertension cardiomyopathy pacemaker AICD placement. Patient has history of recurrent metastatic bladder cancer did not respond well to radiation or chemotherapy is not a surgical candidate due to his cardiac history. He has been experiencing hematuria since October. Over the past 2-3 days patient has become very weak and unable to perform his ADLs despite assistance. He denies any urinary retention. He has had a very poor appetite and the states he has not been drinking very much over the past few days. He denies any fevers chills nausea vomiting diarrhea pain shortness of breath. Patient presented to the ER with the above complaints. According to ER records lab work revealed hyperkalemia with potassium of 6.2 trending was elevated 2.94 BUN 70 hemoglobin is 8.4 troponin 0.04 which was down from previous which was 9.6. Patient's blood pressure low 100s to 89 systolic patient was given IV fluids he was type and screen he was given bicarbonate glue case insulin and Lasix in the ER as well as 2 L of normal saline. He was admitted for further workup and evaluation. Presently patient appears pale and weak. He is alert and appropriate following simple commands. He denies any chest pain or shortness of breath. His reports the patient chronically leaks blood from his urethra and he must wear attends undergarments. Presently systolic blood pressure is 98 will continue to monitor I reviewed this case with Dr. Mares who agrees with plan. Past Med Surg Social Fam HX - Past Medical History Medical history: arthritis, cancer, cardiomyopathy, coronary artery disease, hyperlipidemia, hypertension, malignancy, myocardial infarction, renal disease, other Psychiatric history: no psych history, other - Past Surgical History Surgical History: cancer surgery, coronary bypass (CABG), pacemaker/AICD, other , AICD, pacemaker - Social History Smoking Status: Never smoker Smokeless Tobacco Status: No Alcohol use: occasionally Drug use: none Internal Medicine - H&P: Meds Diltiazem HCl [Diltiazem 24Hr Cd] 120 mg PO DAILY 10/17/16 [History] Enalapril Maleate [Vasotec] 20 mg PO BID 10/17/16 [History] Metoprolol XL (24 HR) Succ [Toprol Xl] 50 mg PO DAILY 10/17/16 [History] Multivits,Ca,Min/Iron/FA/Lycop [Centrum Men's Tablet] 1 each PO DAILY 10/17/16 [ History] Allergies shellfish derived Allergy (Verified 05/17/15 20:21) Hives All Systems PM: A 10-system review of systems was performed and is negative for pertinent findings except as documented above in the HPI. - Constitutional Constitutional: anorexia, fatigue, weakness, weight loss - Cardiovascular Cardiovascular ROS IM: no chest pain, no diaphoresis, no dyspnea, no lightheadedness, no palpitations, no syncope - Respiratory Respiratory: no cough, no dyspnea, no wheezing, no excessive phlegm production - Gastrointestinal Gastrointestinal: no abdominal pain, no diarrhea, no hematemesis, no hematochezia, no melena, no nausea, no vomiting - Genitourinary Genitourinary ROS male: hematuria, penile discharge - Musculoskeletal Musculoskeletal ROS IM: no numbness, no tingling - Integumentary Integumentary IM: no rash, no unusual bruising - Neurological Neurological ROS: no confusion, no convulsions, no focal weakness, no numbness, no tingling, no tremor(s) - Constitutional Vitals: Temp Pulse Resp BP Pulse Ox 97.7 F 99 18 98/65 95 12/13/16 20:00 12/13/16 20:00 12/13/16 20:00 12/13/16 20:00 12/13/16 20:00 General appearance: Present: cachectic, A&O X 3 - Head Head exam: Present: atraumatic, normocephalic - Eye Eye exam: Present: PERRL, conjuntiva pink, sclera anicteric Pupils: Present: PERRL - Neck Neck exam general surgery: Present: supple, trachea midline. Absent: lymphadenopathy - Respiratory Respiratory exam: Present: CTAB. Absent: accessory muscle use, rales, rhonchi, wheezes - Cardiovascular Cardiovascular exam: Present: RRR, +S1, +S2. Absent: diastolic murmur, gallop, rubs, systolic murmur - GI/Abdominal GI/Abdominal exam: Present: normal bowel sounds, soft, no peritoneal signs. Absent: distended, tenderness - Extremities Exam Extremities exam: Present: warm, radial pulses palpable and symetrical. Absent : calf tenderness, cyanotic, pedal edema - Neurological Exam Neurological exam: Present: CN II-XII intact, oriented X3, no focal deficits. Absent: pronater drift, facial droop, speech deficit - Skin Skin exam: Present: dry, intact Internal Med - H&P Results - Labs CBC & Chem 7: 12/13/16 16:29 12/13/16 16:29 - EKG Data Prior EKG available for review: yes When compared to previous EKG: there is no significant change EKG comments: 12/13/16 20:33 V paced <Gurvinder Mares - Last Filed: 12/13/16 21:39> Date of Encounter: 12/13/16 Internal Medicine - H&P: HPI History of present illness: Mr. Gibson is a 86 year old male All Systems PM: A 10-system review of systems was performed and is negative for pertinent findings except as documented above in the HPI. - Constitutional Vitals: Temp Pulse Resp BP Pulse Ox 97.7 F 99 18 98/65 97 12/13/16 20:00 12/13/16 20:00 12/13/16 20:00 12/13/16 20:00 12/13/16 20:44 Internal Med - H&P Results - Labs CBC & Chem 7: 12/13/16 16:29 12/13/16 16:29 - Attending Attestation I examined this patient and my medical decision-making was reviewed with Ms. Toro. I agree with the documented findings, disposition and treatment plan as described except to the extent set forth below. 85-year-old male with a history of coronary artery disease status post CABG, stage IV metastatic bladder cancer, pacemaker placement, hematuria persists to the hospital due to worsening weakness over the last 2-3 days and inability to perform his activities of daily living despite assistance. Patient has also had worsening hematuria. On exam, patient is lying in his bed and is in no acute distress. Clear because bilaterally. First and second heart sounds are present. No tachycardia. Laboratory data reviewed. Chest x-ray personally reviewed-status post CABG. Pacemaker in place. No acute abnormalities, stated. Patient will be placed under observation and given intravenous fluids. Patient has received glucose, insulin, bicarbonate for his hyperkalemia. We will provide a single dose of Kayexalate. Repeat BMP tomorrow morning. Telemetry monitoring. Acute kidney injury likely due to bilateral hydronephrosis that is cause due to bladder cancer. Patient was seen by urology in the past and had refused Bauman catheter placement and bladder irrigation. Coronary artery disease-stable Anemia likely due to chronic blood loss-transfuse to maintain hemoglobin greater than 9 given his coronary artery disease. PARAG [facility]
[2016-12-13] MEDS ORDERED: 0.9 % Sodium Chloride 250 ML ONE (21:50)
[2016-12-14] MEDS ORDERED: 0.9 % Sodium Chloride 250 ML ONE (00:56)
[2016-12-14 05:38] LABS: Potassium 4.7 mEq/L (3.5-4.5)
[2016-12-14 06:30] LABS: Basophils % 0.2 %; Eosinophils % 0.5 %; Hematocrit 30.5 % (37.5-50.1); Hemoglobin 9.9 g/dL (12.9-16.9); Immature Granulocytes % 0.5 % (0-4); Immature Platelets 0.6 % (1.1-6.1); Lymphocytes # 1.1 K/mcL (0.6-4.6); Lymphocytes % 16.9 %; Mean Corpuscular HGB Conc 32.5 g/dL (31.6-35.5); Mean Corpuscular Hemoglobin 29.9 pg (28.0-33.3); Mean Corpuscular Volume 92.1 fL (83.0-100.0); Mean Platelet Volume 8.5 fL (9.4-12.4); Monocytes # 0.8 K/mcL (0.0-1.3); Monocytes % 11.8 %; Neutrophils # 4.4 K/mcL (1.6-8.9); Platelet Count 205 K/mcL (140-400); Red Blood Count 3.31 M/mcL (4.19-5.50); Red Cell Distribution Width 17.4 % (11.5-14.5); Segmented Neutrophils % 70.1 %
[2016-12-14] MEDS: Diltiazem CD (24hr) 120 MG CAPSULE PO SCH (08:46)
[2016-12-14] MEDS: Sodium Bicarbonate 100 MEQ in 0.45 % Sodium Chloride 1,000 ML IVC SCH ×2 (08:46→21:17)
[2016-12-14] MEDS: Metoprolol XL (24 HR) Succ 50 MG TAB.ER.24H PO SCH (08:46)
--- NOTE | 2016-12-14 09:34 | Internal Med Progress Note ---
Date of Encounter: 12/14/16 Time of Encounter: 09:26 - Assessment and plan (1) Acute kidney injury superimposed on chronic kidney disease Current Visit: No Status: Acute Assessment and plan: ARIN on CKD likely secondary to dehydration/poor PO intake currently tolerating PO intake will continue IV fluids NAGMA, bicarb deficit noted to be: 4.7amp will start 2amp bicarb in 0.45%NS at 100cc/hr renal function improved from previous day pt has history of bilateral hydronephrosis secondary to bladder ca and has refused peralta catheter placement will continue to closely monitor continue to hold Enalapril (2) Hyperkalemia Current Visit: Yes Status: Acute Assessment and plan: Improved continue IV fluids continue to monitor electrolytes and replace as needed (3) Anemia Current Visit: No Status: Chronic Assessment and plan: History of iron def anemia s/p 2unit pRBC transfusion yesterday(12/13/16) pt has history of chronic hematuria H&H within acceptable range will continue to closely monitor Qualifiers: Anemia type: other cause Other causes of anemia: acute posthemorrhagic Qualified Code(s): D62 - Acute posthemorrhagic anemia (4) Bladder cancer Current Visit: No Status: Chronic Assessment and plan: history of metastatic bladder ca failed chemotherapy and radiation therapy not a surgical candidate due to cardiac history Palliative care consultation requested to establish goals of care code status: DNR/CC/DNI Qualifiers: Bladder location: unspecified site Qualified Code(s): C67.9 - Malignant neoplasm of bladder, unspecified (5) Goals of care, counseling/discussion Current Visit: No Status: Acute (6) CAD (coronary artery disease) Current Visit: No Status: Chronic Qualifiers: Coronary Disease-Associated Artery/Lesion type: bypass graft [place] vs. transplanted heart: [place] heart Associated angina: without angina Qualified Code(s): I25.810 - Atherosclerosis of coronary artery bypass graft(s) without angina pectoris (7) DVT prophylaxis Current Visit: Yes Status: Acute Assessment and plan: SCD - Subjective Interval history: Patient seen and examined at bedside. Currently resting comfortably in bed and denies any discomfort. He is unclear of where he is or why he is here. He is only oriented to self. He is able to converse well and is pleasantly confused. Will contact his in regards to his baseline mental status. Pt has history of metastatic disease secondary to bladder cancer and currently not on any treatment regimen. He did not respond well to chemo/radiation therapy , and given his cardiac history, he is not a surgical candidate. Palliative care is consulted to establish goals of care. - Constitutional Vitals: Temp Pulse Resp BP Pulse Ox 97.4 F L 95 16 104/63 98 12/14/16 06:47 12/14/16 06:47 12/14/16 06:47 12/14/16 06:47 12/14/16 06:47 General appearance: Present: cachectic, A&O X 1 (oreinted to self, unclear of place or year), no acute distress - Head Head exam: Present: atraumatic, normocephalic - Eye Eye exam: Present: normal appearance, conjuntiva pink, sclera anicteric - Respiratory Respiratory exam: Present: CTAB. Absent: accessory muscle use, rales, rhonchi, wheezes - Cardiovascular Cardiovascular exam: Present: RRR, +S1, +S2. Absent: diastolic murmur, gallop, rubs, systolic murmur Additional comments: AICD in place - GI/Abdominal GI/Abdominal exam: Present: normal bowel sounds, soft. Absent: distended, tenderness - Extremities Exam Extremities exam: Present: warm, radial pulses palpable and symetrical. Absent : calf tenderness, pedal edema - Neurological Exam Neurological exam: Present: alert, oriented X3 - Psychiatric Psychiatric exam: Present: normal affect, normal mood Internal Medicine: Result - Labs CBC & Chem 7: 12/14/16 05:56 12/14/16 04:18 Labs: Short CBC 12/14/16 Range/Units 05:56 WBC 6.3 (4.3-11.1) K/mcL Hgb 9.9 L D (12.9-16.9) g/dL Hct 30.5 L (37.5-50.1) % Plt Count 205 (140-400) K/mcL Neutrophils # 4.4 (1.6-8.9) K/mcL BMP 12/14/16 04:18 Sodium 139 Potassium 4.7 H D Chloride 113 H Carbon Dioxide 16 L BUN 61 H Creatinine 2.56 H Glucose 113 H Calcium 9.0 Cardiac Enzymes 12/13/16 12/14/16 Range/Units 22:15 04:18 Troponin I 0.04 H* 0.04 H* (0-0.03) ng/mL Consult Discharge Plan - Plan Referrals: Donna Man MD [Primary Care Provider] -
--- NOTE | 2016-12-14 13:00 | Electrocardiograph Report ---
[address] [place], [place] [address] Test Date: 2016-12-13 Pat Name: Perico Gibson Department: 102 Room: 2A11 Gender: M Patient Svcs Mgr: Am : 1930 Requested By: Teddy Khalil Order Number: [id number] Reading MD: Eliazar Downing MD Measurements Intervals [place] Rate: 87 P: 56 WA: 138 QRS: -31 QRSD: 150 T: 72 QT: 404 QTc: 448 Interpretive Statements ELECTRONIC VENTRICULAR PACEMAKER Electronically Signed On 12-14-2016 12:58:39 EDT by Eliazar Downing MD
--- NOTE | 2016-12-14 13:56 | Palliative - Consult Note ---
Date of Encounter: 12/14/16 Time of Encounter: 13:54 - Assessment and Plan (1) Gross hematuria Current Visit: Yes Status: Chronic Assessment and plan: Plan for urology consult for placement of peralta catheter. (2) Cancer associated pain Current Visit: No Status: Chronic Assessment and plan: Mr. Gibson currently denies pain. His spouse states he only takes acetaminophen as needed for pain. Continue to follow. (3) ARIN (acute kidney injury) Current Visit: Yes Status: Acute (4) Bladder cancer Current Visit: Yes Status: Chronic Assessment and plan: Mr. Gibson has declined further treatment for bladder CA. According to his spouse, he is not a candidate for surgical intervention due to his cardiac function. Qualifiers: Bladder location: unspecified site Qualified Code(s): C67.9 - Malignant neoplasm of bladder, unspecified (5) Goals of care, counseling/discussion Current Visit: No Status: Acute Assessment and plan: Goals of care discussion with ronny's spouse-Annika Gibson (patient has altered mental status). Reviewed diagnosis, lab tests, treatment plan and plan of care. Overall, Ms. Gibson is well aware of her 's prognosis. They have had end of life discussions in the past and Mr. Gibson has been very clear that he did not want heroic measures or "life support" if his health should fail. Advanced directives in the form of living will and POA are completed. Reveiwed long-term goals of care. Ms. Gibson is unable to care for her spouse at home due to his weakness. Goal is for PT/OT evaluation and possible placement in ECF for rehab upon discharge. Discussed diagnosis and terminal operations manager treatment. Hospice philosophy and support were reviewed. Ms. Gibson verbalizes understanding of Hospice services including routine home care and respite care. She requests a referral to [facility]. The palliative care team will continue to follow. (6) Frailty Current Visit: Yes Status: Acute Assessment and plan: Consult physical therapy and occupational therapy. Dietitian following and supplements ordered. Appreciate recommendations from therapy and nutrition services. Palliative-CN HPI - Data of Consult Patient: known to practice within the last 3 years Consult date: 12/14/16 Requesting Physician: Tessie Castaneda MD Primary Care Provider: Donna Man MD - Consult Narrative Palliative Care/Comfort Measures: Palliative care Reason for consult: Goals of Care History of present illness: Mr. Gibson is a 86 year old male patient presenting to the emergency department complaints of progressive weakness of the prior one to 2 days. Mr. Gibson has a history of stage IV metastatic bladder cancer with gross hematuria for the past 8 weeks. He resides at home with his , Annika Gibson, 28 years. History provided by his as the patient has an altered mental status. Spouse reports increasing confusion and weakness over the past 1-2 days. Prior to that, he had been able to ambulate with the assistance of a walker. The day before admission, he required max assistance with activities of daily living including bathing. He is brought to the emergency department by private vehicle and found to have hyperkalemia, acute kidney injury on chronic kidney disease. He was admitted for further workup and treatment. The palliative care service was consulted to establish goals of care. Overall, the patient's health has been declining over the past 2 months. He was diagnosed with bladder cancer approximately 5 years ago, and was treated and the [facility] cancer tabern[facility]. According to his spouse, he was told he would need to have a complete cystectomy, but "his heart was not strong enough to take the surgery". At that time, Mr. Gibson elected to forego any further treatment for his cancer. He reports an overall 40 pound weight loss in the past 5 years. His mobility is declining and he now requires the use of assistive devices. Mr. Gibson is incontinent of urine. Support system is comprised of his spouse as primary caregiver. He does have 3 daughters, with 2 living. His children are not actively involved in his day to day care. He did not serve in the . CC: Tessie Castaneda MD Past Med Surg Social Fam HX - Past Medical History Medical history: arthritis, cancer, cardiomyopathy, coronary artery disease, hyperlipidemia, hypertension, malignancy, myocardial infarction, renal disease, other Psychiatric history: no psych history, other - Past Surgical History Surgical History: cancer surgery, coronary bypass (CABG), pacemaker/AICD, other , AICD, pacemaker - Social History Smoking Status: Never smoker Smokeless Tobacco Status: No Alcohol use: occasionally Drug use: none Medications and Allergies Diltiazem HCl [Diltiazem 24Hr Cd] 120 mg PO DAILY 10/17/16 [History] Enalapril Maleate [Vasotec] 20 mg PO BID 10/17/16 [History] Metoprolol XL (24 HR) Succ [Toprol Xl] 50 mg PO DAILY 10/17/16 [History] Multivits,Ca,Min/Iron/FA/Lycop [Centrum Men's Tablet] 1 each PO DAILY 10/17/16 [ History] Allergies shellfish derived Allergy (Verified 05/17/15 20:21) Hives - Constitutional Constitutional ROS PAL: decreased appetite, weight loss - EENT Eyes: no change in vision Ears: no decreased hearing Ears, nose, mouth, throat: no sinus pain, no dysphagia, no sore throat - Cardiovascular Cardiovascular ROS: no chest pain, no chest pain with activity, no dyspnea on exertion, no irregular heart rhythm, no orthopnea, no pedal edema - Respiratory Respiratory: no cough, no dyspnea, no hemoptysis, no dyspnea on exertion - Gastrointestinal Gastrointestinal: no abdominal pain, no change in bowel habits, no constipation , no diarrhea, no fecal incontinence, no hematemesis, no hematochezia, no loose stools, no nausea, no vomiting - Genitourinary Genitourinary ROS male: dysuria, urinary incontinence - Musculoskeletal Musculoskeletal ROS IM: muscle weakness - Integumentary ROS Integumentary: no sores, no unusual bruising, no wounds - Neurological Neurological ROS: confusion, weakness (global), no focal weakness, no numbness, no paresthesias - Psychiatric Psychiatric general PM: confusion, no anxiety, no depression Palliative Care-Exam - Constitutional Vitals: Temp Pulse Resp BP Pulse Ox 97.7 F 88 14 91/58 97 12/14/16 10:50 12/14/16 10:50 12/14/16 10:50 12/14/16 10:50 12/14/16 10:50 Internal Medicine - CN: Reslt - Labs CBC & Chem 7: 12/14/16 05:56 12/14/16 04:18 Labs: Short CBC 12/14/16 Range/Units 05:56 WBC 6.3 (4.3-11.1) K/mcL Hgb 9.9 L D (12.9-16.9) g/dL Hct 30.5 L (37.5-50.1) % Plt Count 205 (140-400) K/mcL Neutrophils # 4.4 (1.6-8.9) K/mcL BMP 12/14/16 04:18 Sodium 139 Potassium 4.7 H D Chloride 113 H Carbon Dioxide 16 L BUN 61 H Creatinine 2.56 H Glucose 113 H Calcium 9.0 Cardiac Enzymes 12/13/16 12/14/16 Range/Units 22:15 04:18 Troponin I 0.04 H* 0.04 H* (0-0.03) ng/mL Consult Discharge Plan - Plan Referrals: Donna Man MD [Primary Care Provider] - Palliative Quality Palliative Quality: Screen for Code Status: Yes, Screen for Goals of Care: Yes, Screen for Pain: Yes, If Pain Regimen Started, Initiate Bowel Regimen: NA, Screen for Nausea/Vomitting: Yes Code Status: 12/13/16 20:13 Resuscitation Status: Active [RES] Routine Comment: Resuscitation Status: [id number]
--- NOTE | 2016-12-14 19:12 | Urology - Consult Note ---
Date of Encounter: 12/14/16 Time of Encounter: 19:10 - Assessment and Plan (1) Hydronephrosis Current Visit: Yes Status: Acute Assessment and plan: 86-year-old man with a history of incomplete emptying and bilateral hydronephrosis. He has urinary retention. I was able to place a 16 [place] coude tipped catheter. His urine is tea to murky brown colored. He did well with the catheter placement. We'll discuss removal of the catheter once his renal function improves and if he desires. Qualifiers: Qualified Code(s): N13.1 - Hydronephrosis with ureteral stricture, not elsewhere classified (2) Bladder cancer Current Visit: Yes Status: Chronic Assessment and plan: He has metastatic bladder cancer with evidence of retroperitoneal lymphadenopathy. He is not interested in further treatment at this time. We discussed that the bladder cancer may be leading to ureteral obstruction as well. He now has an indwelling catheter. We discussed how bladder cancer can lead to bleeding and it may obstruct his catheter. We will see ultimately how he does as time goes on. Management and intervention would be per his wishes. Qualifiers: Bladder location: unspecified site Qualified Code(s): C67.9 - Malignant neoplasm of bladder, unspecified Urology CN:HPI Consult date: 12/14/16 Reason for consult Urology: Difficult [place] Requesting physician: Tessie Castaneda History of present illness: 86-year-old man with a history of metastatic bladder cancer was admitted for mental status changes and worsening renal function. He has not been able to urinate. Bladder scan has shown an elevated residual. I was consulted to assist in placement of the catheter and manage any hematuria. He was diagnosed with muscle invasive bladder cancer at [facility]. He was not a surgical candidate. He never received any treatment for the bladder cancer. He had a CT scan in October of this year which showed bilateral hydroureteronephrosis and evidence of retroperitoneal lymphadenopathy. He has a history of prostate cancer and is status post brachytherapy. Past Med Surg Social Fam HX - Past Medical History Medical history: arthritis, cancer, cardiomyopathy, coronary artery disease, hyperlipidemia, hypertension, malignancy, myocardial infarction, renal disease, other Psychiatric history: no psych history, other - Past Surgical History Surgical History: cancer surgery, coronary bypass (CABG), pacemaker/AICD, other , AICD, pacemaker - Social History Smoking Status: Never smoker Smokeless Tobacco Status: No Alcohol use: occasionally Drug use: none Medications and Allergies Diltiazem HCl [Diltiazem 24Hr Cd] 120 mg PO DAILY 10/17/16 [History] Enalapril Maleate [Vasotec] 20 mg PO BID 10/17/16 [History] Metoprolol XL (24 HR) Succ [Toprol Xl] 50 mg PO DAILY 10/17/16 [History] Multivits,Ca,Min/Iron/FA/Lycop [Centrum Men's Tablet] 1 each PO DAILY 10/17/16 [ History] Allergies shellfish derived Allergy (Verified 05/17/15 20:21) Hives Review of Systems - Constitutional no chills, no fever(s) - EENT Nose, mouth and throat: no dizziness - Cardiovascular no chest pain - Respiratory no dyspnea - Gastrointestinal no nausea, no vomiting - Genitourinary hematuria, urinary incontinence, no flank pain - Musculoskeletal no back pain - Integumentary no erythema, no rash - Neurological no weakness - Psychiatric no suicidal ideation - Hematologic/Lymphatic no easy bleeding - Allergic/Immunologic no wheezing Exam Initial Vital Signs Temp Pulse Resp BP Pulse Ox 97.6 F 89 20 114/98 96 12/13/16 15:22 12/13/16 15:22 12/13/16 15:22 12/13/16 15:22 12/13/16 15:22 - General physical appearance Present: well developed, well nourished, no distress - Eyes Absent: icteric - ENT Present: normal nares - Neck Present: trachea midline - Respiratory Present: normal respiratory effort - Cardiovascular Cardiovascular exam IM: RRR - Abdomen Abdomen: Present: soft Urology Results - Labs 12/14/16 05:56 12/14/16 04:18 Abnormal lab results RBC 3.31 M/mcL (4.19-5.50) L 12/14/16 05:56 Hgb 9.9 g/dL (12.9-16.9) L D 12/14/16 05:56 Hct 30.5 % (37.5-50.1) L 12/14/16 05:56 RDW 17.4 % (11.5-14.5) H 12/14/16 05:56 MPV 8.5 fL (9.4-12.4) L 12/14/16 05:56 Immature Plt Fraction 0.6 % (1.1-6.1) L 12/14/16 05:56 Potassium 4.7 mEq/L (3.5-4.5) H D 12/14/16 04:18 Chloride 113 mEq/L (98-109) H 12/14/16 04:18 Carbon Dioxide 16 mEq/L (19-29) L 12/14/16 04:18 BUN 61 mg/dL (8-26) H 12/14/16 04:18 Creatinine 2.56 mg/dL (0.72-1.25) H 12/14/16 04:18 Est GFR ( Amer) 29 (> 60) L 12/14/16 04:18 Est GFR (Non-Af Amer) 24 (> 60) L 12/14/16 04:18 Glucose 113 mg/dL (70-99) H 12/14/16 04:18 POC Glucose 136 (58-89) H 12/13/16 16:27 Calculated Osmolality 306 (280-300) H 12/14/16 04:18 Troponin I 0.04 ng/mL (0-0.03) H* 12/14/16 04:18 Albumin 2.5 g/dL (3.5-5.0) L 12/13/16 16:29 Globulin 4.9 g/dL (2.4-3.5) H 12/13/16 16:29 Albumin/Globulin Ratio 0.5 (1.1-2.2) L 12/13/16 16:29 All other labs normal. - Imaging CT scan - abdomen: report reviewed, image reviewed CT scan - pelvis: report reviewed, image reviewed Consult Discharge Plan - Plan Referrals: Donna Man MD [Primary Care Provider] -
[2016-12-15 00:01] LABS: Bilirubin,Urine Negative (Negative); Blood,Urine Large (Negative); Clarity,Urine Cloudy (Clear); Color,Urine Amber (Yellow); Glucose,Urine (UA) Normal (Normal); Ketones,Urine Negative (Negative); Leukocyte Esterase,Urine Large (Negative); Nitrite,Urine Positive (Negative); PH,Urine 6.5 pH Units (5.0-8.0); Protein,Urine >=300 mg/dL (Neg-Trace); Specific Gravity,Urine 1.015 (1.010-1.025); Urobilinogen,Urine Normal (Normal)
[2016-12-15 00:15] LABS: WBC,Urine TNTC per hpf (0-3)
[2016-12-15 00:17] LABS: Bacteria,Urine Present per hpf (None-Few); RBC,Urine Present per hpf (0-3)
[2016-12-15] MEDS ORDERED: Melatonin 3 MG TABLET PO ONE (01:41)
[2016-12-15 03:43] LABS: Basophils % 0.3 %; Eosinophils % 0.4 %; Hematocrit 26.5 % (37.5-50.1); Hemoglobin 8.6 g/dL (12.9-16.9); Immature Granulocytes % 0.3 % (0-4); Lymphocytes # 1.8 K/mcL (0.6-4.6); Lymphocytes % 26.5 %; Mean Corpuscular HGB Conc 32.5 g/dL (31.6-35.5); Mean Corpuscular Hemoglobin 29.7 pg (28.0-33.3); Mean Corpuscular Volume 91.4 fL (83.0-100.0); Mean Platelet Volume 8.4 fL (9.4-12.4); Monocytes # 0.9 K/mcL (0.0-1.3); Monocytes % 13.2 %; Platelet Count 145 K/mcL (140-400); Red Cell Distribution Width 17.4 % (11.5-14.5); Segmented Neutrophils % 59.3 %
[2016-12-15 03:57] LABS: Calcium 8.3 mg/dL (8.6-10.8); Phosphorous 3.9 mg/dL (2.3-4.7); Potassium 4.1 mEq/L (3.5-4.5)
[2016-12-15] MEDS: Magnesium Oxide 400 MG TABLET PO SCH ×3 (04:20→20:01)
--- NOTE | 2016-12-15 07:35 | Urology Progress Note ---
Date of Encounter: 12/15/16 Time of Encounter: 07:33 - Assessment and Plan (1) Hydronephrosis Current Visit: Yes Status: Acute Qualifiers: Qualified Code(s): N13.1 - Hydronephrosis with ureteral stricture, not elsewhere classified (2) Bladder cancer Current Visit: Yes Status: Chronic Assessment and plan: 86 year old man with metastatic bladder cancer and hematuria. H&H has dropped some. We will need to discuss further with him and family how much of intervention he would like to proceed with given the hematuria. Will reassess later today. Qualifiers: Bladder location: unspecified site Qualified Code(s): C67.9 - Malignant neoplasm of bladder, unspecified Progress Note Narrative: 86 year old man with hematuria and bladder cancer. Catheter placed yesterday. H&H has dropped some. He is sleepy this morning. Objective Initial Vital Signs Temp Pulse Resp BP Pulse Ox 97.6 F 89 20 114/98 96 12/13/16 15:22 12/13/16 15:22 12/13/16 15:22 12/13/16 15:22 12/13/16 15:22 - General physical appearance Present: well nourished - Abdomen Present: soft - Genitourinary Urine Appearance: Present: Hematuria (tea to pink color) - Labs 12/15/16 03:18 12/15/16 03:18 Diabetes panel 12/15/16 Range/Units 03:18 Sodium 139 (136-145) mEq/L Potassium 4.1 (3.5-4.5) mEq/L Chloride 109 (98-109) mEq/L Carbon Dioxide 22 (19-29) mEq/L BUN 52 H (8-26) mg/dL Creatinine 2.31 H (0.72-1.25) mg/dL Glucose 109 H (70-99) mg/dL Calcium 8.3 L (8.6-10.8) mg/dL Calcium panel 12/15/16 Range/Units 03:18 Calcium 8.3 L (8.6-10.8) mg/dL Phosphorus 3.9 (2.3-4.7) mg/dL Pituitary panel 12/15/16 Range/Units 03:18 Sodium 139 (136-145) mEq/L Potassium 4.1 (3.5-4.5) mEq/L Chloride 109 (98-109) mEq/L Carbon Dioxide 22 (19-29) mEq/L BUN 52 H (8-26) mg/dL Creatinine 2.31 H (0.72-1.25) mg/dL Glucose 109 H (70-99) mg/dL Calcium 8.3 L (8.6-10.8) mg/dL Adrenal panel 12/15/16 Range/Units 03:18 Sodium 139 (136-145) mEq/L Potassium 4.1 (3.5-4.5) mEq/L Chloride 109 (98-109) mEq/L Carbon Dioxide 22 (19-29) mEq/L BUN 52 H (8-26) mg/dL Creatinine 2.31 H (0.72-1.25) mg/dL Glucose 109 H (70-99) mg/dL Calcium 8.3 L (8.6-10.8) mg/dL - VTE Documentation of Mechanical Device: Intermittent pneumatic compression device Consult Discharge Plan - Plan Referrals: Donna Man MD [Primary Care Provider] - (Web Requested 12/14/16)
[2016-12-15] MEDS ORDERED: Magnesium Sulfate 2 GM in D5% in Water 100 ML IVPB ONE (07:46)
--- NOTE | 2016-12-15 10:10 | Palliative Progress Note ---
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 Reports feeling better with peralta catheter draining bladder / Patient has [place] and tyenol . Patient requested one dose of [place] in past 24 hrs. Will continue to monitor. (2) Gross hematuria Current Visit: No Status: Chronic Assessment and plan: Resolving. Patient being followed by Urology. Inserted 16 fr. Peralta catheter and patient reports feeling better. Hgb 8.6 today. (3) Goals of care, counseling/discussion Current Visit: Yes Status: Acute Assessment and plan: Patient desires to go to ECF and participate in therapy. Patient is weak and frail. Awaiting PT & OT consult for evaluation and recommendations. Will work with SS for ECF placement. Patient is DNRCC-A, DNI and is involved in care but is to frail to care for patient at home at present. (4) Bladder cancer Current Visit: Yes Status: Chronic Assessment and plan: Patient desires no treatment for bladder cancer. Patient presents now with retroperitoneal lymphadenopathy. Qualifiers: Bladder location: unspecified site Qualified Code(s): C67.9 - Malignant neoplasm of bladder, unspecified (5) Frailty Current Visit: Yes Status: Acute - Time Spent With Patient Total time spent is greater than 50% in coordination of care (as documented) at patient's floor/unit and/or counseling patient: 25 - 35 minutes - Subjective Interval history: Patient sitting up in the chair. Consuming breakfast. Denies pain or discomfort. Peralta catheter draining dark yellow urine. - Constitutional Vitals: Abnormal lab results RBC 2.90 M/mcL (4.19-5.50) L 12/15/16 03:18 Hgb 8.6 g/dL (12.9-16.9) L 12/15/16 03:18 Hct 26.5 % (37.5-50.1) L 12/15/16 03:18 RDW 17.4 % (11.5-14.5) H 12/15/16 03:18 MPV 8.4 fL (9.4-12.4) L 12/15/16 03:18 Immature Plt Fraction 0.6 % (1.1-6.1) L 12/14/16 05:56 BUN 52 mg/dL (8-26) H 12/15/16 03:18 Creatinine 2.31 mg/dL (0.72-1.25) H 12/15/16 03:18 Est GFR ( Amer) 33 (> 60) L 12/15/16 03:18 Est GFR (Non-Af Amer) 27 (> 60) L 12/15/16 03:18 Glucose 109 mg/dL (70-99) H 12/15/16 03:18 POC Glucose 136 (58-89) H 12/13/16 16:27 Calculated Osmolality 303 (280-300) H 12/15/16 03:18 Calcium 8.3 mg/dL (8.6-10.8) L 12/15/16 03:18 Magnesium 1.0 mg/dL (1.6-2.6) L 12/15/16 03:18 Troponin I 0.04 ng/mL (0-0.03) H* 12/14/16 04:18 Albumin 2.5 g/dL (3.5-5.0) L 12/13/16 16:29 Globulin 4.9 g/dL (2.4-3.5) H 12/13/16 16:29 Albumin/Globulin Ratio 0.5 (1.1-2.2) L 12/13/16 16:29 Urine Color Lana (Yellow) A 12/14/16 23:40 Urine Clarity Cloudy (Clear) A 12/14/16 23:40 Urine Protein >=300 mg/dL (Neg-Trace) H 12/14/16 23:40 Urine Blood Large (Negative) H 12/14/16 23:40 Urine Nitrite Positive (Negative) A 12/14/16 23:40 Ur Leukocyte Esterase Large (Negative) H 12/14/16 23:40 Urine Microscopic WBC TNTC per hpf (0-3) H 12/14/16 23:40 Ur Culture Indicated? YES (NO) A 12/14/16 23:40 - Head Head exam: Present: atraumatic, normal inspection, normocephalic - Eye Eye exam: Present: PERRL Pupils: Present: PERRL - ENT ENT exam: Present: mucous membranes moist - Neck Neck exam: Present: full ROM - Respiratory Respiratory exam: Present: decreased breath sounds - Expanded Respiratory Exam Location: decreased breath sounds: Left, Right, Lower - Cardiovascular Cardiovascular exam: Present: RRR, +S1, +S2 - Expanded Cardiovascular Exam Peripheral pulses: 1+: Femoral (L) PM, Femoral (R) PM, Posterior Tibialis (L), Posterior Tibialis (R), 2+: Carotid (L) PM, Carotid (R) PM, Radial (L), Radial ( R), Dorsalis Pedis (L) PM, Dorsalis Pedis (R) PM - GI/Abdominal GI/Abdominal exam: Present: normal bowel sounds, soft - External exam: Present: normal external exam (Peralta catheter patent of dark yellow urine) - Extremities Exam Extremities exam: Present: pedal edema (1+) - Back Exam Back exam: Present: full ROM - Neurological Exam Neurological exam: Present: alert (Oriented x [address] and person) - Psychiatric Psychiatric exam: Present: normal affect - Skin Skin exam: Present: pallor, warm Palliative Quality Palliative Quality: Screen for Code Status: Yes, Screen for Goals of Care: Yes, Screen for Pain: Yes, If Pain Regimen Started, Initiate Bowel Regimen: NA, Screen for Nausea/Vomitting: Yes - Labs CBC & Chem 7: 12/15/16 03:18 12/15/16 03:18 Labs: Laboratory Results - last 24 hr 12/14/16 12/15/16 12/15/16 23:40 03:18 03:18 WBC 6.8 RBC 2.90 L Hgb 8.6 L Hct 26.5 L MCV 91.4 MCH 29.7 MCHC 32.5 RDW 17.4 H Plt Count 145 MPV 8.4 L Immature Gran % 0.3 Seg Neutrophils % 59.3 Lymphocytes % 26.5 Monocytes % 13.2 Eosinophils % 0.4 Basophils % 0.3 Neutrophils # 4.0 Lymphocytes # 1.8 Monocytes # 0.9 Eosinophils # 0.0 Basophils # 0.0 Sodium 139 Potassium 4.1 Chloride 109 Carbon Dioxide 22 BUN 52 H Creatinine 2.31 H Est GFR ( Amer) 33 L Est GFR (Non-Af Amer) 27 L BUN/Creatinine Ratio 23 Glucose 109 H Calculated Osmolality 303 H Calcium 8.3 L Phosphorus 3.9 Magnesium 1.0 L Urine Color Lana A Urine Clarity Cloudy A Urine pH 6.5 Ur Specific [place] 1.015 Urine Protein >=300 H Urine Glucose (UA) Normal Urine Ketones Negative Urine Blood Large H Urine Nitrite Positive A Urine Bilirubin Negative Urine Urobilinogen Normal Ur Leukocyte Esterase Large H Urine Microscopic RBC Present Urine Microscopic WBC TNTC H Urine Bacteria Present Ur Culture Indicated? YES A Consult Discharge Plan - Plan Referrals: Donna Man MD [Primary Care Provider] - (Web Requested 12/14/16)
[2016-12-15] MEDS ORDERED: 0.9 % Sodium Chloride 250 ML IVC PRN (10:18)
[2016-12-15] MEDS: Sodium Bicarbonate 100 MEQ in 0.45 % Sodium Chloride 1,000 ML IVC SCH (10:23)
[2016-12-15] MEDS ORDERED: 0.9 % Sodium Chloride 1,000 ML ONE (10:54)
[2016-12-15] MEDS ORDERED: 0.9 % Sodium Chloride 250 ML ONE (10:54)
[2016-12-15] MEDS: Piperacillin/Tazobactam 3.375 GM in D5% in Water (Mini-Bag+) 100 ML IVPB SCH ×3 (11:00→23:55)
[2016-12-15] MEDS: 0.9 % Sodium Chloride 1,000 ML IVC SCH (11:04)
[2016-12-15] MEDS: Metoprolol XL (24 HR) Succ 50 MG TAB.ER.24H PO SCH (11:50)
[2016-12-15] MEDS: Diltiazem CD (24hr) 120 MG CAPSULE PO SCH (11:50)
[2016-12-15] MEDS ORDERED: Magnesium Sulfate 1 GM in D5% in Water 100 ML IVPB ONE (12:00)
--- NOTE | 2016-12-15 12:59 | Internal Med Progress Note ---
Date of Encounter: 12/15/16 Time of Encounter: 12:55 - Assessment and plan (1) UTI (urinary tract infection) Current Visit: Yes Status: Acute Assessment and plan: UA consistent with UTI prior urine culture positive for pseudomonas aeruginosa resistant to Levaquin and cipro, sensitive to Zosyn Will empirically treat with Zosyn and de-escalate therapy as per culture results Qualifiers: Urinary tract infection type: site unspecified Hematuria presence: with hematuria Qualified Code(s): N39.0 - Urinary tract infection, site not specified; R31.9 - Hematuria, unspecified (2) Acute kidney injury superimposed on chronic kidney disease Current Visit: No Status: Acute Assessment and plan: ARIN on CKD likely secondary to dehydration/poor PO intake currently tolerating PO intake will continue IV fluids (NS at 75cc/hr) NAGMA resolved, discontinue bicarb drip renal function improved from previous day Peralta cath placed by urology will continue to closely monitor continue to hold Enalapril (3) Anemia Current Visit: No Status: Chronic Assessment and plan: History of iron def anemia s/p 2unit pRBC transfusion (12/13/16) pt has history of chronic hematuria Drop in H&H noted will continue to closely monitor and transfuse as needed Qualifiers: Anemia type: other cause Other causes of anemia: acute posthemorrhagic Qualified Code(s): D62 - Acute posthemorrhagic anemia (4) Hyperkalemia Current Visit: Yes Status: Resolved Assessment and plan: Resolved continue IV fluids continue to monitor electrolytes and replace as needed (5) Bladder cancer Current Visit: Yes Status: Chronic Assessment and plan: history of metastatic bladder ca failed chemotherapy and radiation therapy not a surgical candidate due to cardiac history Palliative care consultation appreciated urology consultation appreciated peralta cath in place code status: DNR/CC/DNI Qualifiers: Bladder location: unspecified site Qualified Code(s): C67.9 - Malignant neoplasm of bladder, unspecified (6) Goals of care, counseling/discussion Current Visit: Yes Status: Acute (7) CAD (coronary artery disease) Current Visit: No Status: Chronic Qualifiers: Coronary Disease-Associated Artery/Lesion type: bypass graft [place] vs. transplanted heart: [place] heart Associated angina: without angina Qualified Code(s): I25.810 - Atherosclerosis of coronary artery bypass graft(s) without angina pectoris (8) DVT prophylaxis Current Visit: Yes Status: Acute Assessment and plan: SCD - Subjective Interval history: Patient seen and examined with present at bedside. Patient denies any discomfort, he is more oriented today. Oriented to self and place but not time. Urology consultation appreciated, peralta cath placed with peristant gross hematuria. Drop in H&H noted, will closely monitor and transfuse as needed Palliative care on board and will discuss goals of care with the . UA noted to be positive for UTI, urine cultures sent. started zosyn according to patient's prior urine culture reports. - Constitutional Vitals: Temp Pulse Resp BP Pulse Ox 98.6 F 78 16 106/46 94 12/15/16 11:50 12/15/16 11:50 12/15/16 11:50 12/15/16 11:00 12/15/16 11:50 General appearance: Present: cachectic, A&O X 2, no acute distress - Head Head exam: Present: atraumatic, normocephalic - Eye Eye exam: Present: normal appearance, conjuntiva pink, sclera anicteric - Respiratory Respiratory exam: Present: CTAB. Absent: respiratory distress, wheezes - Cardiovascular Cardiovascular exam: Present: RRR, +S1, +S2 - GI/Abdominal GI/Abdominal exam: Present: normal bowel sounds, soft. Absent: tenderness - Additional comments: peralta cath in place with gross hematuria - Extremities Exam Extremities exam: Present: warm, radial pulses palpable and symetrical. Absent : calf tenderness, pedal edema - Neurological Exam Neurological exam: Present: alert - Psychiatric Psychiatric exam: Present: normal mood Internal Medicine: Result - Labs CBC & Chem 7: 12/15/16 03:18 12/15/16 03:18 Labs: Short CBC 12/15/16 Range/Units 03:18 WBC 6.8 (4.3-11.1) K/mcL Hgb 8.6 L (12.9-16.9) g/dL Hct 26.5 L (37.5-50.1) % Plt Count 145 (140-400) K/mcL Neutrophils # 4.0 (1.6-8.9) K/mcL BMP 12/15/16 03:18 Sodium 139 Potassium 4.1 Chloride 109 Carbon Dioxide 22 BUN 52 H Creatinine 2.31 H Glucose 109 H Calcium 8.3 L Urine 12/14/16 Range/Units 23:40 Urine Color Lana A (Yellow) Urine Clarity Cloudy A (Clear) Urine pH 6.5 (5.0-8.0) pH Units Ur Specific [place] 1.015 (1.010-1.025) Urine Protein >=300 H (Neg-Trace) mg/dL Urine Glucose (UA) Normal (Normal) mg/dL - VTE Documentation of Mechanical Device: Intermittent pneumatic compression device Consult Discharge Plan - Plan Referrals: Donna Man MD [Primary Care Provider] - 12/23/16 12:00 pm (Web Requested 12/14/16)
--- NOTE | 2016-12-15 14:42 | Event Note ---
Date of Encounter: 12/15/16 Time of Encounter: 01:00 Conducted meeting with patient and at the bedside. Patient with inoperable bladder cancer and presented with hematuria. Urology placed Ba[place] and urine is still dark reddish brown. Explained that patient would need frequent transfusion for blood loss. Annika agrees that they do not desire to continue transfusions. Discussed Hospice care at home with [facility] hospice care as patient is in [facility]. Annika desires hospice but desires patient to be stronger to go home. I explained that despite therapy that patient would be weak from low H/H. PT & OT consult pending. Annika verbalized understanding and DC plan is for either short term rehab versus DC to home with hospice care. Once report from PT is reviewed I will discuss with Annika. Dr. Castaneda updated on POC.
[2016-12-15 15:15] LABS: Hematocrit 28.4 % (37.5-50.1); Hemoglobin 9.1 g/dL (12.9-16.9)
[2016-12-16] MEDS: 0.9 % Sodium Chloride 1,000 ML IVC SCH (02:39)
[2016-12-16] MEDS ORDERED: Melatonin 3 MG TABLET PO ONE (03:50)
[2016-12-16 04:02] LABS: Basophils % 0.1 %; Eosinophils # 0.1 K/mcL (0.0-0.6); Eosinophils % 0.8 %; Hematocrit 27.3 % (37.5-50.1); Hemoglobin 8.4 g/dL (12.9-16.9); Immature Granulocytes % 0.5 % (0-4); Lymphocytes # 1.8 K/mcL (0.6-4.6); Lymphocytes % 24.7 %; Mean Corpuscular HGB Conc 30.8 g/dL (31.6-35.5); Mean Corpuscular Hemoglobin 29.4 pg (28.0-33.3); Mean Corpuscular Volume 95.5 fL (83.0-100.0); Mean Platelet Volume 8.9 fL (9.4-12.4); Monocytes # 0.8 K/mcL (0.0-1.3); Monocytes % 11.3 %; Neutrophils # 4.6 K/mcL (1.6-8.9); Platelet Count 141 K/mcL (140-400); Red Blood Count 2.86 M/mcL (4.19-5.50); Red Cell Distribution Width 16.8 % (11.5-14.5); Segmented Neutrophils % 62.6 %
[2016-12-16 04:16] LABS: Calcium 8.1 mg/dL (8.6-10.8); Magnesium 1.7 mg/dL (1.6-2.6); Phosphorous 2.8 mg/dL (2.3-4.7); Potassium 4.1 mEq/L (3.5-4.5)
[2016-12-16] MEDS: Metoprolol XL (24 HR) Succ 50 MG TAB.ER.24H PO SCH (08:53)
[2016-12-16] MEDS: Piperacillin/Tazobactam 3.375 GM in D5% in Water (Mini-Bag+) 100 ML IVPB SCH ×2 (08:53→16:49)
[2016-12-16] MEDS: Diltiazem CD (24hr) 120 MG CAPSULE PO SCH (08:53)
--- NOTE | 2016-12-16 10:17 | Palliative Progress Note ---
Date of Encounter: 12/17/16 Time of Encounter: 10:15 - Assessment and plan (1) Gross hematuria Current Visit: No Status: Chronic (2) Cancer associated pain Current Visit: No Status: Chronic Assessment and plan: Acetaminophen as needed. (3) ARIN (acute kidney injury) Current Visit: Yes Status: Acute (4) Bladder cancer Current Visit: Yes Status: Chronic Qualifiers: Bladder location: unspecified site Qualified Code(s): C67.9 - Malignant neoplasm of bladder, unspecified (5) Goals of care, counseling/discussion Current Visit: Yes Status: Acute Assessment and plan: Plan for family meeting upon arrival of spouse to discuss discharge plans. Update: Met with spouse-Annika, to discuss discharge options. At this time, Mrs. Gibson would like to explore hospice options. Referral called to [facility] to discuss discharge needs and admission information. [place] would like to schedule an admission visit for Monday12/19/16 (or upon discharge from hospital). (6) Frailty Current Visit: Yes Status: Acute Assessment and plan: PT/OT consult noted with recommendations for discharge home with home health. - Time Spent With Patient Total time spent is greater than 50% in coordination of care (as documented) at patient's floor/unit and/or counseling patient: - Subjective Interval history: Mr. Gibson is lying in bed. He is confused, but pleasant and conversant. He expresses frustration and the need to "tie up loose ends". 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 - Constitutional Vitals: Abnormal lab results RBC 2.86 M/mcL (4.19-5.50) L 12/16/16 03:19 Hgb 8.4 g/dL (12.9-16.9) L 12/16/16 03:19 Hct 27.3 % (37.5-50.1) L 12/16/16 03:19 MCHC 30.8 g/dL (31.6-35.5) L 12/16/16 03:19 RDW 16.8 % (11.5-14.5) H 12/16/16 03:19 MPV 8.9 fL (9.4-12.4) L 12/16/16 03:19 Immature Plt Fraction 0.6 % (1.1-6.1) L 12/14/16 05:56 BUN 44 mg/dL (8-26) H 12/16/16 03:19 Creatinine 1.95 mg/dL (0.72-1.25) H 12/16/16 03:19 Est GFR ( Amer) 40 (> 60) L 12/16/16 03:19 Est GFR (Non-Af Amer) 33 (> 60) L 12/16/16 03:19 Glucose 115 mg/dL (70-99) H 12/16/16 03:19 POC Glucose 136 (58-89) H 12/13/16 16:27 Calcium 8.1 mg/dL (8.6-10.8) L 12/16/16 03:19 Troponin I 0.04 ng/mL (0-0.03) H* 12/14/16 04:18 Albumin 2.5 g/dL (3.5-5.0) L 12/13/16 16:29 Globulin 4.9 g/dL (2.4-3.5) H 12/13/16 16:29 Albumin/Globulin Ratio 0.5 (1.1-2.2) L 12/13/16 16:29 Urine Color Lana (Yellow) A 12/14/16 23:40 Urine Clarity Cloudy (Clear) A 12/14/16 23:40 Urine Protein >=300 mg/dL (Neg-Trace) H 12/14/16 23:40 Urine Blood Large (Negative) H 12/14/16 23:40 Urine Nitrite Positive (Negative) A 12/14/16 23:40 Ur Leukocyte Esterase Large (Negative) H 12/14/16 23:40 Urine Microscopic WBC TNTC per hpf (0-3) H 12/14/16 23:40 Ur Culture Indicated? YES (NO) A 12/14/16 23:40 General appearance: Present: cooperative, no acute distress - Respiratory Respiratory exam: Absent: accessory muscle use, respiratory distress - Cardiovascular Cardiovascular exam: Present: RRR - Neurological Exam Neurological exam: Present: alert (oriented to person and place, able to hold conversation, but responses are inappropriate) - Psychiatric Psychiatric exam: Absent: agitated, anxious - Skin Skin exam: Present: dry, warm Palliative Quality Palliative Quality: Screen for Code Status: Yes, Screen for Goals of Care: Yes, Screen for Pain: Yes, If Pain Regimen Started, Initiate Bowel Regimen: NA, Screen for Nausea/Vomitting: Yes - Labs CBC & Chem 7: 12/17/16 03:40 12/17/16 03:40 Labs: Laboratory Results - last 24 hr 12/15/16 12/16/16 12/16/16 14:47 03:19 03:19 WBC 7.3 RBC 2.86 L Hgb 9.1 L 8.4 L Hct 28.4 L 27.3 L MCV 95.5 MCH 29.4 MCHC 30.8 L RDW 16.8 H Plt Count 141 MPV 8.9 L Immature Gran % 0.5 Seg Neutrophils % 62.6 Lymphocytes % 24.7 Monocytes % 11.3 Eosinophils % 0.8 Basophils % 0.1 Neutrophils # 4.6 Lymphocytes # 1.8 Monocytes # 0.8 Eosinophils # 0.1 Basophils # 0.0 Sodium 138 Potassium 4.1 Chloride 107 Carbon Dioxide 23 BUN 44 H Creatinine 1.95 H Est GFR ( Amer) 40 L Est GFR (Non-Af Amer) 33 L BUN/Creatinine Ratio 23 Glucose 115 H Calculated Osmolality 298 Calcium 8.1 L Phosphorus 2.8 Magnesium 1.7 Consult Discharge Plan - Plan Referrals: Donna Man MD [Primary Care Provider] - 12/23/16 12:00 pm (Web Requested 12/14/16)
--- NOTE | 2016-12-16 10:28 | Internal Med Progress Note ---
Date of Encounter: 12/16/16 Time of Encounter: 10:24 - Assessment and plan (1) UTI (urinary tract infection) Current Visit: Yes Status: Acute Assessment and plan: UA consistent with UTI prior urine culture positive for pseudomonas aeruginosa resistant to Levaquin and cipro, sensitive to Zosyn Will empirically treat with Zosyn and de-escalate therapy as per culture results urine culture prelim: gram negative rods, will f/u official report Qualifiers: Urinary tract infection type: site unspecified Hematuria presence: with hematuria Qualified Code(s): N39.0 - Urinary tract infection, site not specified; R31.9 - Hematuria, unspecified (2) Acute kidney injury superimposed on chronic kidney disease Current Visit: No Status: Acute Assessment and plan: ARIN on CKD likely secondary to dehydration/poor PO intake currently tolerating PO intake will continue IV fluids (NS at 75cc/hr) renal function improved from previous day Peralta cath placed by urology will continue to closely monitor continue to hold Enalapril (3) Anemia Current Visit: No Status: Chronic Assessment and plan: History of iron def anemia s/p 2unit pRBC transfusion (12/13/16) pt has history of chronic hematuria H&H low but acceptable, as per family's request, no further blood transfusions Qualifiers: Anemia type: other cause Other causes of anemia: acute posthemorrhagic Qualified Code(s): D62 - Acute posthemorrhagic anemia (4) Hyperkalemia Current Visit: Yes Status: Resolved (5) Bladder cancer Current Visit: Yes Status: Chronic Assessment and plan: history of metastatic bladder ca failed chemotherapy and radiation therapy not a surgical candidate due to cardiac history Palliative care consultation appreciated urology consultation appreciated peralta cath in place code status: DNR/CC/DNI Qualifiers: Bladder location: unspecified site Qualified Code(s): C67.9 - Malignant neoplasm of bladder, unspecified (6) Goals of care, counseling/discussion Current Visit: Yes Status: Acute (7) CAD (coronary artery disease) Current Visit: No Status: Chronic Qualifiers: Coronary Disease-Associated Artery/Lesion type: bypass graft [place] vs. transplanted heart: [place] heart Associated angina: without angina Qualified Code(s): I25.810 - Atherosclerosis of coronary artery bypass graft(s) without angina pectoris (8) DVT prophylaxis Current Visit: Yes Status: Acute Assessment and plan: SCD - Subjective Interval history: Patient seen and examined at bedside. Patient resting in bed, remains confused but oriented to self and place. No overnight issues reported. Patient and family made the decisions to not administer any further blood transfusions. Hematuria persists Palliative care on board and working closely with the family in regards to disposition plan and goals of care. - Constitutional Vitals: Temp Pulse Resp BP Pulse Ox 98.0 F 100 18 114/74 97 12/16/16 07:38 12/16/16 07:38 12/16/16 07:38 12/16/16 07:38 12/16/16 07:38 General appearance: Present: cachectic, A&O X 2, no acute distress - Head Head exam: Present: atraumatic, normocephalic - Eye Eye exam: Present: normal appearance, conjuntiva pink, sclera anicteric - Respiratory Respiratory exam: Present: CTAB. Absent: respiratory distress, wheezes - Cardiovascular Cardiovascular exam: Present: RRR, +S1, +S2 - GI/Abdominal GI/Abdominal exam: Present: normal bowel sounds, soft, no peritoneal signs. Absent: distended, tenderness - Extremities Exam Extremities exam: Present: warm, radial pulses palpable and symetrical. Absent : calf tenderness, pedal edema - Neurological Exam Neurological exam: Present: alert, oriented X3 Internal Medicine: Result - Labs CBC & Chem 7: 12/16/16 03:19 12/16/16 03:19 Labs: Short CBC 12/15/16 12/16/16 Range/Units 14:47 03:19 WBC 7.3 (4.3-11.1) K/mcL Hgb 9.1 L 8.4 L (12.9-16.9) g/dL Hct 28.4 L 27.3 L (37.5-50.1) % Plt Count 141 (140-400) K/mcL Neutrophils # 4.6 (1.6-8.9) K/mcL BMP 12/16/16 03:19 Sodium 138 Potassium 4.1 Chloride 107 Carbon Dioxide 23 BUN 44 H Creatinine 1.95 H Glucose 115 H Calcium 8.1 L - VTE Documentation of Mechanical Device: Intermittent pneumatic compression device Consult Discharge Plan - Plan Referrals: Donna Man MD [Primary Care Provider] - 12/23/16 12:00 pm (Web Requested 12/14/16)
--- NOTE | 2016-12-16 18:39 | Urology Progress Note ---
Date of Encounter: 12/16/16 Time of Encounter: 18:38 - Assessment and Plan (1) Hydronephrosis Current Visit: Yes Status: Acute Qualifiers: Qualified Code(s): N13.1 - Hydronephrosis with ureteral stricture, not elsewhere classified (2) Bladder cancer Current Visit: Yes Status: Chronic Assessment and plan: 86-year-old man with a history of metastatic bladder cancer. We will keep his indwelling catheter for now. This should be changed out on a monthly basis. We will hold off on further intervention. I will sign off at this time. Please call with any questions. Qualifiers: Bladder location: unspecified site Qualified Code(s): C67.9 - Malignant neoplasm of bladder, unspecified Progress Note Narrative: Stable today. He is still having hematuria. I spoke at length with his . She is not interested in further intervention at this time. Objective Initial Vital Signs Temp Pulse Resp BP Pulse Ox 97.6 F 89 20 114/98 96 12/13/16 15:22 12/13/16 15:22 12/13/16 15:22 12/13/16 15:22 12/13/16 15:22 - General physical appearance Present: well developed, well nourished, no distress - Respiratory Present: normal respiratory effort - Abdomen Present: soft - Genitourinary Urine Appearance: Present: Hematuria - Labs 12/16/16 03:19 12/16/16 03:19 Diabetes panel 12/16/16 Range/Units 03:19 Sodium 138 (136-145) mEq/L Potassium 4.1 (3.5-4.5) mEq/L Chloride 107 (98-109) mEq/L Carbon Dioxide 23 (19-29) mEq/L BUN 44 H (8-26) mg/dL Creatinine 1.95 H (0.72-1.25) mg/dL Glucose 115 H (70-99) mg/dL Calcium 8.1 L (8.6-10.8) mg/dL Calcium panel 12/16/16 Range/Units 03:19 Calcium 8.1 L (8.6-10.8) mg/dL Phosphorus 2.8 (2.3-4.7) mg/dL Pituitary panel 12/16/16 Range/Units 03:19 Sodium 138 (136-145) mEq/L Potassium 4.1 (3.5-4.5) mEq/L Chloride 107 (98-109) mEq/L Carbon Dioxide 23 (19-29) mEq/L BUN 44 H (8-26) mg/dL Creatinine 1.95 H (0.72-1.25) mg/dL Glucose 115 H (70-99) mg/dL Calcium 8.1 L (8.6-10.8) mg/dL Adrenal panel 12/16/16 Range/Units 03:19 Sodium 138 (136-145) mEq/L Potassium 4.1 (3.5-4.5) mEq/L Chloride 107 (98-109) mEq/L Carbon Dioxide 23 (19-29) mEq/L BUN 44 H (8-26) mg/dL Creatinine 1.95 H (0.72-1.25) mg/dL Glucose 115 H (70-99) mg/dL Calcium 8.1 L (8.6-10.8) mg/dL - VTE Documentation of Mechanical Device: Intermittent pneumatic compression device Consult Discharge Plan - Plan Referrals: Donna Man MD [Primary Care Provider] - 12/23/16 12:00 pm (Web Requested 12/14/16)
[2016-12-17] MEDS: Piperacillin/Tazobactam 3.375 GM in D5% in Water (Mini-Bag+) 100 ML IVPB SCH ×3 (00:54→16:07)
[2016-12-17] MEDS: 0.9 % Sodium Chloride 1,000 ML IVC SCH ×2 (03:39→17:52)
[2016-12-17 03:57] LABS: Basophils % 0.2 %; Eosinophils # 0.1 K/mcL (0.0-0.6); Eosinophils % 1.4 %; Hematocrit 24.7 % (37.5-50.1); Hemoglobin 7.8 g/dL (12.9-16.9); Immature Granulocytes % 0.3 % (0-4); Lymphocytes # 1.8 K/mcL (0.6-4.6); Lymphocytes % 27.4 %; Mean Corpuscular HGB Conc 31.6 g/dL (31.6-35.5); Mean Corpuscular Hemoglobin 30.1 pg (28.0-33.3); Mean Corpuscular Volume 95.4 fL (83.0-100.0); Mean Platelet Volume 8.7 fL (9.4-12.4); Monocytes # 0.7 K/mcL (0.0-1.3); Neutrophils # 3.9 K/mcL (1.6-8.9); Platelet Count 118 K/mcL (140-400); Red Blood Count 2.59 M/mcL (4.19-5.50); Red Cell Distribution Width 16.2 % (11.5-14.5); Segmented Neutrophils % 59.7 %
[2016-12-17 04:19] LABS: Magnesium 1.4 mg/dL (1.6-2.6); Phosphorous 3.3 mg/dL (2.3-4.7); Potassium 4.5 mEq/L (3.5-4.5)
[2016-12-17] MEDS ORDERED: Magnesium Sulfate 2 GM in D5% in Water 100 ML IVPB ONE (08:25)
[2016-12-17] MEDS: Diltiazem CD (24hr) 120 MG CAPSULE PO SCH (09:17)
[2016-12-17] MEDS: Metoprolol XL (24 HR) Succ 50 MG TAB.ER.24H PO SCH (09:19)
--- NOTE | 2016-12-17 10:21 | Internal Med Progress Note ---
Date of Encounter: 12/17/16 Time of Encounter: 10:19 - Assessment and plan (1) UTI (urinary tract infection) Current Visit: Yes Status: Acute Assessment and plan: Urine culture positive for psuedomonas only IV medications sensitive to the culture report Power wand in place executive secretary social welfare consulted for discharge disposition ECF vs home health palliative care on board continue IV abx (Day 3/7) Qualifiers: Urinary tract infection type: site unspecified Hematuria presence: with hematuria Qualified Code(s): N39.0 - Urinary tract infection, site not specified; R31.9 - Hematuria, unspecified (2) Acute kidney injury superimposed on chronic kidney disease Current Visit: No Status: Acute Assessment and plan: ARIN on CKD likely secondary to dehydration/poor PO intake currently tolerating PO intake will continue IV fluids (NS at 75cc/hr) renal function improved from previous day Peralta cath placed by urology will continue to closely monitor continue to hold Enalapril (3) Anemia Current Visit: No Status: Chronic Assessment and plan: History of iron def anemia s/p 2unit pRBC transfusion (12/13/16) pt has history of chronic hematuria H&H low but acceptable, as per family's request, no further blood transfusions Qualifiers: Anemia type: other cause Other causes of anemia: acute posthemorrhagic Qualified Code(s): D62 - Acute posthemorrhagic anemia (4) Hyperkalemia Current Visit: Yes Status: Resolved (5) Bladder cancer Current Visit: Yes Status: Chronic Assessment and plan: 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 transplanted heart: [place] heart Associated angina: without angina Qualified Code(s): I25.810 - Atherosclerosis of coronary artery bypass graft(s) without angina pectoris (8) DVT prophylaxis Current Visit: Yes Status: Acute Assessment and plan: SCD (9) Hypotension Current Visit: Yes Status: Acute Assessment and plan: Noted to be hypotensive Clinically asymptomatic will hold antihypertensive medications at this time continue to monitor Qualifiers: Hypotension type: unspecified hypotension type Qualified Code(s): I95.9 - Hypotension, unspecified - Subjective Interval history: Patient seen and examined at bedside. resting in bed, remains confused, oriented to self and place. Urine cultures positive for pseudomonas but intermediate sensitivity to oral abx , therefore will need IV abx for a total of 7 days (Day 3) Powerwand placed. apron worker consulted for discharge disposition. ECF vs home health/hospice. Palliative care team on board and will discuss with family the plans for disposition - Constitutional Vitals: Temp Pulse Resp BP Pulse Ox 98.1 F 76 16 97/53 94 12/17/16 07:30 12/17/16 07:30 12/17/16 07:30 12/17/16 07:30 12/17/16 08:32 General appearance: Present: A&O X 2, no acute distress - Head Head exam: Present: atraumatic, normocephalic - Eye Eye exam: Present: normal appearance, conjuntiva pink, sclera anicteric - Respiratory Respiratory exam: Present: CTAB. Absent: accessory muscle use, rales, rhonchi, wheezes - Cardiovascular Cardiovascular exam: Present: RRR, +S1, +S2 - GI/Abdominal GI/Abdominal exam: Present: normal bowel sounds, soft. Absent: distended, tenderness - Extremities Exam Extremities exam: Present: warm, radial pulses palpable and symetrical. Absent : calf tenderness, pedal edema - Neurological Exam Neurological exam: Present: alert - Psychiatric Psychiatric exam: Present: normal affect, normal mood Internal Medicine: Result - Labs CBC & Chem 7: 12/17/16 03:40 12/17/16 03:40 Labs: Short CBC 12/17/16 Range/Units 03:40 WBC 6.5 (4.3-11.1) K/mcL Hgb 7.8 L (12.9-16.9) g/dL Hct 24.7 L (37.5-50.1) % Plt Count 118 L (140-400) K/mcL Neutrophils # 3.9 (1.6-8.9) K/mcL BMP 12/17/16 03:40 Sodium 139 Potassium 4.5 Chloride 111 H Carbon Dioxide 21 BUN 34 H D Creatinine 1.84 H Glucose 95 Calcium 8.0 L - VTE Documentation of Mechanical Device: Intermittent pneumatic compression device Consult Discharge Plan - Plan Referrals: Donna Man MD [Primary Care Provider] - 12/23/16 12:00 pm (Web Requested 12/14/16)
--- NOTE | 2016-12-17 13:06 | Palliative Progress Note ---
Date of Encounter: 12/17/16 Time of Encounter: 13:04 - Assessment and plan (1) Gross hematuria Current Visit: No Status: Chronic Assessment and plan: Urology has signed off. Maintain indwelling peralta and change monthly per recommendations. (2) Cancer associated pain Current Visit: No Status: Chronic Assessment and plan: Acetaminophen as needed. (3) ARIN (acute kidney injury) Current Visit: Yes Status: Acute (4) Bladder cancer Current Visit: Yes Status: Chronic Qualifiers: Bladder location: unspecified site Qualified Code(s): C67.9 - Malignant neoplasm of bladder, unspecified (5) Goals of care, counseling/discussion Current Visit: Yes Status: Acute Assessment and plan: Patient will need IV ATB for treatment of UTI. Recommend home with home health care and then transition to hospice upon completion of IV ATB. outpatient services director consulted to assist with home health set up. (6) Frailty Current Visit: Yes Status: Acute Assessment and plan: PT/OT consult noted with recommendations for discharge home with home health. - Time Spent With Patient Total time spent is greater than 50% in coordination of care (as documented) at patient's floor/unit and/or counseling patient: - Subjective Interval history: Mr. Gibson is lying in bed. He remains confused, but pleasant and conversant. Family at bedside. Urine culture results noted. - Constitutional Vitals: Abnormal lab results RBC 2.59 M/mcL (4.19-5.50) L 12/17/16 03:40 Hgb 7.8 g/dL (12.9-16.9) L 12/17/16 03:40 Hct 24.7 % (37.5-50.1) L 12/17/16 03:40 RDW 16.2 % (11.5-14.5) H 12/17/16 03:40 Plt Count 118 K/mcL (140-400) L 12/17/16 03:40 MPV 8.7 fL (9.4-12.4) L 12/17/16 03:40 Immature Plt Fraction 0.6 % (1.1-6.1) L 12/14/16 05:56 Chloride 111 mEq/L (98-109) H 12/17/16 03:40 BUN 34 mg/dL (8-26) H D 12/17/16 03:40 Creatinine 1.84 mg/dL (0.72-1.25) H 12/17/16 03:40 Est GFR ( Amer) 43 (> 60) L 12/17/16 03:40 Est GFR (Non-Af Amer) 35 (> 60) L 12/17/16 03:40 POC Glucose 136 (58-89) H 12/13/16 16:27 Calcium 8.0 mg/dL (8.6-10.8) L 12/17/16 03:40 Magnesium 1.4 mg/dL (1.6-2.6) L 12/17/16 03:40 Troponin I 0.04 ng/mL (0-0.03) H* 12/14/16 04:18 Albumin 2.5 g/dL (3.5-5.0) L 12/13/16 16:29 Globulin 4.9 g/dL (2.4-3.5) H 12/13/16 16:29 Albumin/Globulin Ratio 0.5 (1.1-2.2) L 12/13/16 16:29 Urine Color Lana (Yellow) A 12/14/16 23:40 Urine Clarity Cloudy (Clear) A 12/14/16 23:40 Urine Protein >=300 mg/dL (Neg-Trace) H 12/14/16 23:40 Urine Blood Large (Negative) H 12/14/16 23:40 Urine Nitrite Positive (Negative) A 12/14/16 23:40 Ur Leukocyte Esterase Large (Negative) H 12/14/16 23:40 Urine Microscopic WBC TNTC per hpf (0-3) H 12/14/16 23:40 Ur Culture Indicated? YES (NO) A 12/14/16 23:40 General appearance: Present: cooperative, no acute distress Exam: 86 year old male patient, appears in no acute distress, gross hematuria noted in the peralta catheter. - Respiratory Respiratory exam: Absent: accessory muscle use, respiratory distress - Cardiovascular Cardiovascular exam: Present: RRR - GI/Abdominal GI/Abdominal exam: Absent: tenderness - Extremities Exam Extremities exam: Present: normal inspection. Absent: pedal edema - Neurological Exam Neurological exam: Present: alert (pleasantly confused) - Psychiatric Psychiatric exam: Absent: agitated, anxious - Skin Skin exam: Present: dry, warm Palliative Quality Palliative Quality: Screen for Code Status: Yes, Screen for Goals of Care: Yes, Screen for Pain: Yes, If Pain Regimen Started, Initiate Bowel Regimen: NA, Screen for Nausea/Vomitting: Yes - Labs CBC & Chem 7: 12/17/16 03:40 12/17/16 03:40 Labs: Laboratory Results - last 24 hr 12/17/16 12/17/16 03:40 03:40 WBC 6.5 RBC 2.59 L Hgb 7.8 L Hct 24.7 L MCV 95.4 MCH 30.1 MCHC 31.6 RDW 16.2 H Plt Count 118 L MPV 8.7 L Immature Gran % 0.3 Seg Neutrophils % 59.7 Lymphocytes % 27.4 Monocytes % 11.0 Eosinophils % 1.4 Basophils % 0.2 Neutrophils # 3.9 Lymphocytes # 1.8 Monocytes # 0.7 Eosinophils # 0.1 Basophils # 0.0 Sodium 139 Potassium 4.5 Chloride 111 H Carbon Dioxide 21 BUN 34 H D Creatinine 1.84 H Est GFR ( Amer) 43 L Est GFR (Non-Af Amer) 35 L BUN/Creatinine Ratio 18 Glucose 95 Calculated Osmolality 295 Calcium 8.0 L Phosphorus 3.3 Magnesium 1.4 L Consult Discharge Plan - Plan Referrals: Donna Man MD [Primary Care Provider] - 12/23/16 12:00 pm (Web Requested 12/14/16)
[2016-12-18] MEDS: Piperacillin/Tazobactam 3.375 GM in D5% in Water (Mini-Bag+) 100 ML IVPB SCH ×3 (00:07→16:15)
[2016-12-18 03:43] LABS: Basophils % 0.1 %; Eosinophils # 0.1 K/mcL (0.0-0.6); Immature Granulocytes % 0.5 % (0-4); Lymphocytes # 1.8 K/mcL (0.6-4.6); Mean Corpuscular Hemoglobin 30.2 pg (28.0-33.3); Mean Corpuscular Volume 94.3 fL (83.0-100.0); Mean Platelet Volume 8.4 fL (9.4-12.4); Monocytes # 0.8 K/mcL (0.0-1.3); Neutrophils # 5.4 K/mcL (1.6-8.9); Platelet Count 125 K/mcL (140-400); Red Blood Count 2.65 M/mcL (4.19-5.50); Red Cell Distribution Width 15.8 % (11.5-14.5); Segmented Neutrophils % 66.4 %
[2016-12-18 03:58] LABS: Magnesium 1.7 mg/dL (1.6-2.6); Phosphorous 2.7 mg/dL (2.3-4.7)
[2016-12-18] MEDS: 0.9 % Sodium Chloride 1,000 ML IVC SCH ×3 (05:16→18:45)
[2016-12-18] MEDS: Metoprolol XL (24 HR) Succ 50 MG TAB.ER.24H PO SCH (09:32)
[2016-12-18] MEDS: Diltiazem CD (24hr) 120 MG CAPSULE PO SCH (09:32)
--- NOTE | 2016-12-18 12:06 | Internal Med Progress Note ---
Date of Encounter: 12/18/16 Time of Encounter: 12:04 - Assessment and plan (1) UTI (urinary tract infection) Current Visit: Yes Status: Acute Assessment and plan: Urine culture positive for psuedomonas only IV medications sensitive to the culture report Power wand in place social work msw consulted for discharge disposition ECF vs home health palliative care on board continue IV abx (Day 4) Likely d/c in am with IV abx Qualifiers: Urinary tract infection type: site unspecified Hematuria presence: with hematuria Qualified Code(s): N39.0 - Urinary tract infection, site not specified; R31.9 - Hematuria, unspecified (2) Acute kidney injury superimposed on chronic kidney disease Current Visit: No Status: Acute Assessment and plan: ARIN on CKD likely secondary to dehydration/poor PO intake currently tolerating PO intake will continue IV fluids (NS at 75cc/hr) renal function improved from previous day Peralta cath placed by urology will continue to closely monitor continue to hold Enalapril (3) Anemia Current Visit: No Status: Chronic Assessment and plan: History of iron def anemia s/p 2unit pRBC transfusion (12/13/16) pt has history of chronic hematuria H&H low but acceptable, as per family's request, no further blood transfusions Qualifiers: Anemia type: other cause Other causes of anemia: acute posthemorrhagic Qualified Code(s): D62 - Acute posthemorrhagic anemia (4) Hyperkalemia Current Visit: Yes Status: Resolved Assessment and plan: Resolved continue IV fluids continue to monitor electrolytes and replace as needed (5) Bladder cancer Current Visit: Yes Status: Chronic Assessment and plan: history of metastatic bladder ca failed chemotherapy and radiation therapy not a surgical candidate due to cardiac history Palliative care consultation appreciated urology consultation appreciated peralta cath in place code status: DNR/CC/DNI Qualifiers: Bladder location: unspecified site Qualified Code(s): C67.9 - Malignant neoplasm of bladder, unspecified (6) Goals of care, counseling/discussion Current Visit: Yes Status: Acute (7) CAD (coronary artery disease) Current Visit: No Status: Chronic Qualifiers: Coronary Disease-Associated Artery/Lesion type: bypass graft [place] vs. transplanted heart: [place] heart Associated angina: without angina Qualified Code(s): I25.810 - Atherosclerosis of coronary artery bypass graft(s) without angina pectoris (8) DVT prophylaxis Current Visit: Yes Status: Acute Assessment and plan: SCD (9) Hypotension Current Visit: Yes Status: Resolved Assessment and plan: REsolved BP within acceptable range continue home meds Qualifiers: Hypotension type: unspecified hypotension type Qualified Code(s): I95.9 - Hypotension, unspecified - Subjective Interval history: Patient seen and examined at bedside. resting in bed, remains confused, oriented to self and place. Urine cultures positive for pseudomonas but intermediate sensitivity to oral abx , therefore will need IV abx for a total of 7 days (Day 10/21) Powerwand placed. immigration case worker consulted for discharge disposition. ECF vs home health/hospice. Palliative care team on board and will discuss with family the plans for disposition. Pt will most likely be discharged with home health and IV abx and transition to hospice, however all of this won't be arranged until tomorrow (12/19) - Constitutional Vitals: Temp Pulse Resp BP Pulse Ox 97.9 F 91 18 147/67 91 12/18/16 08:00 12/18/16 08:00 12/18/16 08:00 12/18/16 08:00 12/18/16 08:31 General appearance: Present: A&O X 2, no acute distress - Head Head exam: Present: atraumatic, normocephalic - Eye Eye exam: Present: normal appearance, conjuntiva pink, sclera anicteric - Respiratory Respiratory exam: Present: CTAB. Absent: accessory muscle use, rales, rhonchi, wheezes - Cardiovascular Cardiovascular exam: Present: RRR, +S1, +S2. Absent: diastolic murmur, gallop, rubs, systolic murmur - GI/Abdominal GI/Abdominal exam: Present: normal bowel sounds, soft, no peritoneal signs. Absent: distended, tenderness - Extremities Exam Extremities exam: Present: warm, radial pulses palpable and symetrical. Absent : calf tenderness, pedal edema - Neurological Exam Neurological exam: Present: alert Internal Medicine: Result - Labs CBC & Chem 7: 12/18/16 03:35 12/18/16 03:35 Labs: Short CBC 12/18/16 Range/Units 03:35 WBC 8.1 (4.3-11.1) K/mcL Hgb 8.0 L (12.9-16.9) g/dL Hct 25.0 L (37.5-50.1) % Plt Count 125 L (140-400) K/mcL Neutrophils # 5.4 (1.6-8.9) K/mcL BMP 12/18/16 03:35 Sodium 136 Potassium 4.0 Chloride 109 Carbon Dioxide 19 BUN 32 H Creatinine 1.82 H Glucose 117 H Calcium 8.0 L - VTE Documentation of Mechanical Device: Intermittent pneumatic compression device Consult Discharge Plan - Plan Referrals: Donna Man MD [Primary Care Provider] - 12/23/16 12:00 pm (Web Requested 12/14/16)
[2016-12-19] MEDS: Piperacillin/Tazobactam 3.375 GM in D5% in Water (Mini-Bag+) 100 ML IVPB SCH ×2 (00:35→09:35)
[2016-12-19 03:55] LABS: Basophils % 0.1 %; Eosinophils # 0.1 K/mcL (0.0-0.6); Eosinophils % 0.8 %; Hematocrit 24.6 % (37.5-50.1); Hemoglobin 7.9 g/dL (12.9-16.9); Immature Granulocytes % 0.5 % (0-4); Lymphocytes # 1.9 K/mcL (0.6-4.6); Lymphocytes % 22.3 %; Mean Corpuscular HGB Conc 32.1 g/dL (31.6-35.5); Mean Corpuscular Hemoglobin 30.2 pg (28.0-33.3); Mean Corpuscular Volume 93.9 fL (83.0-100.0); Mean Platelet Volume 8.6 fL (9.4-12.4); Monocytes # 0.9 K/mcL (0.0-1.3); Neutrophils # 5.8 K/mcL (1.6-8.9); Platelet Count 135 K/mcL (140-400); Red Blood Count 2.62 M/mcL (4.19-5.50); Red Cell Distribution Width 15.6 % (11.5-14.5); Segmented Neutrophils % 66.3 %
[2016-12-19 03:58] LABS: Magnesium 1.3 mg/dL (1.6-2.6); Phosphorous 2.7 mg/dL (2.3-4.7); Potassium 3.9 mEq/L (3.5-4.5)
[2016-12-19] MEDS ORDERED: Magnesium Sulfate 2 GM in D5% in Water 100 ML IVPB ONE (08:00)
[2016-12-19] MEDS: Metoprolol XL (24 HR) Succ 50 MG TAB.ER.24H PO SCH (09:28)
[2016-12-19] MEDS: Diltiazem CD (24hr) 120 MG CAPSULE PO SCH (09:28)
[2016-12-19] MEDS: 0.9 % Sodium Chloride 1,000 ML IVC SCH (09:35)
--- NOTE | 2016-12-19 09:56 | Discharge Summary ---
Date of Encounter: 12/19/16 Time of Encounter: 09:53 - Discharge Diagnosis (1) UTI (urinary tract infection) Priority: Primary Status: Acute Qualifiers: Urinary tract infection type: site unspecified Hematuria presence: with hematuria Qualified Code(s): N39.0 - Urinary tract infection, site not specified; R31.9 - Hematuria, unspecified (2) Acute kidney injury superimposed on chronic kidney disease Priority: Primary Status: Resolved (3) Anemia Priority: Secondary Status: Chronic Qualifiers: Anemia type: other cause Other causes of anemia: acute posthemorrhagic Qualified Code(s): D62 - Acute posthemorrhagic anemia (4) Hyperkalemia Priority: Secondary Status: Resolved (5) Bladder cancer Priority: Secondary Status: Chronic Qualifiers: Bladder location: unspecified site Qualified Code(s): C67.9 - Malignant neoplasm of bladder, unspecified (6) Goals of care, counseling/discussion Priority: Secondary Status: Acute (7) CAD (coronary artery disease) Priority: Secondary Status: Chronic Qualifiers: Coronary Disease-Associated Artery/Lesion type: bypass graft [place] vs. transplanted heart: [place] heart Associated angina: without angina Qualified Code(s): I25.810 - Atherosclerosis of coronary artery bypass graft(s) without angina pectoris (8) DVT prophylaxis Priority: Secondary Status: Acute (9) Hypotension Priority: Secondary Status: Resolved Qualifiers: Hypotension type: unspecified hypotension type Qualified Code(s): I95.9 - Hypotension, unspecified - Discharge Medications Prescriptions: Cefepime HCl/D5w [Cefepime-Dextrose 1 gm/50 ml] 1 gm IV Q12H #11 mls HYDROcodone/Acet 5/325 mg [[place] 5-325 mg] 1 tab PO Q6H PRN #20 tab PRN Reason: Severe Pain Home Medications: Diltiazem HCl [Diltiazem 24Hr Cd] 120 mg PO DAILY 10/17/16 [History] Metoprolol XL (24 HR) Succ [Toprol Xl] 50 mg PO DAILY 10/17/16 [History] Multivits,Ca,Min/Iron/FA/Lycop [Centrum Men's Tablet] 1 each PO DAILY 10/17/16 [ History] Cefepime HCl/D5w [Cefepime-Dextrose 1 gm/50 ml] 1 gm IV Q12H #11 mls 12/19/16 [ Rx] HYDROcodone/Acet 5/325 mg [[place] 5-325 mg] 1 tab PO Q6H PRN #20 tab 12/19/16 [Rx ] Allergies/Adverse Reactions: Allergies shellfish derived Allergy (Verified 05/17/15 20:21) Hives Date of admission: 12/14/16 15:16 Primary care physician: Donna Man MD Consults: Palliative care: Dr. Melendez Discharging clinician: Tessie Castaneda Anticipated date of discharge: 12/19/16 - Patient Status Disposition: Home Health Service Condition: Good Functional capacity at discharge: uses cane/walker Overall status at discharge: patient is back to baseline - Discharge Instructions Follow Up With: Donna Man MD [Primary Care Provider] - 12/23/16 12:00 pm (Web Requested 12/14/16) Additional Instructions: Please follow up with your primary care physician within one week after your discharge from the hospital. Please follow up with urology within one to two weeks after your discharge from the hospital. Please continue IV antiobiotics as prescribed. Due to your poor kidney function your home dose of Lisinopril was discontinued. Closely monitor your blood pressure. Hold your Metoprolol dose if your SBP<120. Resume all your other home medications as prescribed by your primary care physician. - Diet and Activity Activity: as per physical therapy Diet: low salt diet Hospital course: Mr. Gibson is a 86 year old male with pMH of CAD, CABG, CKD stage III, HTN, s/p AICD placement, bladder cancer with metastatic disease who was admitted for management of ARIN on CKD secondary to poor PO intake. He was further found to have worsening hematuria requiring blood transfusion. He was also found to a UTI for which he was started on IV abx. Patient's mental status improved back to baseline. Urology consultation was requested and peralta catheter was placed. Patient will be discharged with peralta catheter. Palliative care consultation was requested and decision to make the patient DNR/CC/Arrest was made with no further blood transfusions. Patient will be discharged to home with home health and will be transitioned to hospice there after. Patient will be discharged to home today with follow up with primary care physician, urology. patient and POA () demonstrate understanding of his diagnosis and agree with the discharge care and plan. Pt is noted to have pseudomonas in urine with intermediate sensitivity to oral abx.Will be continuing treatment with IV abx for a total of 10 days - Time Spent with Patient Total time spent providing and/or coordinating discharge services: Greater than 30 minutes - Constitutional Vitals: Temp Pulse Resp BP Pulse Ox 98.1 F 91 16 113/57 88 12/19/16 06:47 12/19/16 06:47 12/19/16 06:47 12/19/16 06:47 12/19/16 06:47 General appearance: Present: A&O X 2, no acute distress - Head Head exam: Present: atraumatic, normocephalic - Eye Eye exam: Present: normal appearance, conjuntiva pink, sclera anicteric - Respiratory Respiratory exam: Absent: respiratory distress, wheezes - Cardiovascular Cardiovascular exam: Present: RRR, +S1, +S2. Absent: diastolic murmur, gallop, rubs, systolic murmur - GI/Abdominal GI/Abdominal exam: Present: normal bowel sounds, soft, no peritoneal signs. Absent: distended, tenderness - Extremities Exam Extremities exam: Present: warm, radial pulses palpable and symetrical. Absent : calf tenderness, pedal edema - Neurological Exam Neurological exam: Present: alert - VTE Documentation of Mechanical Device: Intermittent pneumatic compression device
--- NOTE | 2016-12-19 10:11 | Physician Discharge Referral ---
Home Health/Hosp Referral Info Transfer to: Home Health Provider in Charge Post Discharge: PCP - Diagnosis (1) UTI (urinary tract infection) Priority: Primary Status: Acute (2) Acute kidney injury superimposed on chronic kidney disease Priority: Primary Status: Resolved (3) Anemia Priority: Secondary Status: Chronic (4) Hyperkalemia Priority: Secondary Status: Resolved (5) Bladder cancer Priority: Secondary Status: Chronic (6) Goals of care, counseling/discussion Priority: Secondary Status: Acute (7) CAD (coronary artery disease) Priority: Secondary Status: Chronic (8) DVT prophylaxis Priority: Secondary Status: Acute (9) Hypotension Priority: Secondary Status: Resolved - Respiratory Orders Smoking Cessation: Smoking cessation has been advised. For more information, call the [place] Tobacco Quit Line at 7-988-MQWE-NOW. - Services Needed Following services are medically necessary services: Nursing, Home Health Aide, Physical Therapy, Occupational Therapy - Transfer Medications Prescriptions: Cefepime HCl/D5w [Cefepime-Dextrose 1 gm/50 ml] 1 gm IV Q12H #11 mls HYDROcodone/Acet 5/325 mg [[place] 5-325 mg] 1 tab PO Q6H PRN #20 tab PRN Reason: Severe Pain Home Medications: Diltiazem HCl [Diltiazem 24Hr Cd] 120 mg PO DAILY 10/17/16 [History] Metoprolol XL (24 HR) Succ [Toprol Xl] 50 mg PO DAILY 10/17/16 [History] Multivits,Ca,Min/Iron/FA/Lycop [Centrum Men's Tablet] 1 each PO DAILY 10/17/16 [ History] Cefepime HCl/D5w [Cefepime-Dextrose 1 gm/50 ml] 1 gm IV Q12H #11 mls 12/19/16 [ Rx] HYDROcodone/Acet 5/325 mg [[place] 5-325 mg] 1 tab PO Q6H PRN #20 tab 12/19/16 [Rx ] Allergies/Adverse Reactions: Allergies shellfish derived Allergy (Verified 05/17/15 20:21) Hives Certification: Further, I certify that my clinical findings support that this patient is homebound (i.e. absences from home require considerable and taxing effort and are for medical reasons or rastafarian services or infrequently or short duration when for other reasons) because: Homebound Reason: Patient requires assistance of a person or device to safely leave home Attestation: My signature below is to certify that this patient is under my care and that I, or nurse practitioner, or a physician's curatorial assistant working with me, has a face-to -face encounter with this patient.
[2016-12-19] MEDS: Cefepime HCl 1,000 MG in D5% in Water (Mini-Bag+) 100 ML IVPB SCH (17:31)
[2016-12-20] MEDS: Cefepime HCl 1,000 MG in D5% in Water (Mini-Bag+) 100 ML IVPB SCH (06:22)
[2016-12-20] MEDS: Metoprolol XL (24 HR) Succ 50 MG TAB.ER.24H PO SCH (09:31)
[2016-12-20] MEDS: Diltiazem CD (24hr) 120 MG CAPSULE PO SCH (09:31)
[2016-12-20 11:33] VITALS: BP 132/82
--- NOTE | 2016-12-20 13:54 | Event Note ---
Date of Encounter: 12/20/16 Time of Encounter: 08:15 Patient was discharged yesterday. Awaiting insurance authorization for IV antibiotics. As such his discharge was held. Reports no new complaints at this time. No other acute issues overnight. He will be discharged today.
== END 2016-12-20 14:05 | disposition home health service (06) | DRG 683 ==
LOC: 2ANU 15:03 → EMEROO 15:03 → 2ANU 19:28 → SUATTDRO 12-14 15:16
PROVIDERS: ADMIT Internal Medicine Endocrinology, Diabetes & Metabolism; ATTEND Internal Medicine